=== PATIENT | female | born 1995 | race African-American/Black ===

== ENCOUNTER 2016-04-13 16:46 | Emergency (ER) | payer BC, OTHER ==
[2016-04-13 17:25] VITALS: BP 119/61; PULSE 51; RESP 18; TEMP 97.1
--- NOTE | 2016-04-13 17:42 | ED ---
General Adult HPI - General Chief complaint: ENT Stated complaint: Left Ear Hearing Impairment Time Seen by Provider: 04/13/16 17:33 Source: patient, RN notes reviewed Mode of arrival: ambulatory Limitations: no limitations - History of Present Illness Initial comments: Patient is a 21-year-old female who presents emergency room today with a chief complaint of possible ear infection to the left side. She does admit that a week ago began bothering her. She states that she did place some cotton in it the other day. She states she noticed she was having some drainage coming from it does admit that there was some blood on it. She states she did not place anything else in the ear. She states the hearing has been decreased and has been more painful. Denies any other complaints or symptoms. Patient denies any recent fever, chills, shortness of breath, chest pain, back pain, abdominal pain , nausea or vomiting, numbness or tingling, dysuria or hematuria, constipation or diarrhea, headaches or visual changes, or any other complaints. - Related Data Home Medications Medication Instructions Recorded Confirmed Pnv with Ca,No.72/Iron/FA 1 each PO DAILY 12/19/15 12/19/15 [ Plus Tablet] Previous Rx's Medication Instructions Recorded Amoxicillin 500 mg PO Q8H 10 Days 04/13/16 Ciprofloxacin HCl/Dexameth 4 drops LEFT EAR BID 7 Days 04/13/16 [Ciprodex Otic Suspension] Allergies Allergy/AdvReac Type Severity Reaction Status Date / Time No Known Allergies Allergy Verified 04/13/16 17:25 Review of Systems ROS Statement: Those systems with pertinent positive or pertinent negative responses have been documented in the HPI. ROS Other: All systems not noted in ROS Statement are negative. Past Medical History Past Medical History: No Reported History History of Any Multi-Drug Resistant Organisms: None Reported Past Surgical History: No Surgical Hx Reported Past Anesthesia/Blood Transfusion Reactions: No Reported Reaction, Unable to Obtain Past Psychological History: Anxiety, Bipolar, Depression Smoking Status: Never smoker Past Alcohol Use History: None Reported Past Drug Use History: None Reported - Past Family History Mother Additional Family Medical History / Comment(s): States having some form of thyroid disease General Exam - General Exam Comments Initial Comments: General: The patient is awake and alert, in no distress, and does not appear acutely ill. Eye: Pupils are equal, round and reactive to light, extra-ocular movements are intact. No nystagmus. There is normal conjunctiva bilaterally. No signs of icterus. Ears, nose, mouth and throat: There are moist mucous membranes and no oral lesions. Patient is tender over palpation of the pinna [place] on the left. No tenderness on the right. TMs clear on the right. Left TM difficult to visualize. There is some mild drainage with some dry blood in the left ear canal. Difficult to see the TM. Neck: The neck is supple, there is no tenderness or JVD. Cardiovascular: There is a regular rate and rhythm. No murmur, rub or gallop is appreciated. Respiratory: Lungs are clear to auscultation, respirations are non-labored, breath sounds are equal. No wheezes, stridor, rales, or rhonchi. Musculoskeletal: Normal ROM, no tenderness. Strength 5/5. Sensation intact. Pulses equal bilaterally 2+. Neurological: A&O x 3. CN II-XII intact, There are no obvious motor or sensory deficits. Coordination appears grossly intact. Speech is normal. Skin: Skin is warm and dry and no rashes or lesions are noted. Psychiatric: Cooperative, appropriate mood & affect, normal judgment. Limitations: no limitations Course Vital Signs 04/13/16 17:23 Temperature 97.1 F L Pulse Rate 51 L Respiratory 18 Rate Blood Pressure 119/61 O2 Sat by Pulse 98 Oximetry Medical Decision Making - Medical Decision Making Was discussed with patient about possible ruptured tympanic membrane. Patient is advised follow-up with ENT will be started on both oral and drops of antibiotics. Disposition Clinical Impression: Acute otitis media, Acute otitis externa Disposition: HOME SELF-CARE Condition: Good Instructions: Earache (ED) Additional Instructions: Please use medication as discussed. Please follow-up with family doctor/ENT specialist in the next 2 days of symptoms have not improved. Please return to emergency room if the symptoms increase or worsen or for any other concerns. Prescriptions: Amoxicillin 500 mg PO Q8H 10 Days Ciprofloxacin HCl/Dexameth [Ciprodex Otic Suspension] 4 drops LEFT EAR BID 7 Days Referrals: None,Stated [Primary Care Provider] - 1-2 days Choco Handley DO [Doctor of Osteopathic Medicine] - 1-2 days Time of Disposition: 17:42
== END 2016-04-13 18:10 | disposition home or self-care (01) ==
LOC: EC 16:46
DX: H66.92 Otitis media, unspecified, left ear (principal); H60.502 Unspecified acute noninfective otitis externa, left ear
CPT/HCPCS: 99283

== ENCOUNTER 2016-06-09 19:13 | Emergency (ER) | payer BC, OTHER ==
--- NOTE | 2016-06-09 19:35 | ED ---
Chest Pain HPI - General Chief Complaint: Chest Pain Stated Complaint: Chest Pain/Knee Injury Time Seen by Provider: 06/09/16 19:26 Source: patient, RN notes reviewed Mode of arrival: wheelchair Limitations: no limitations - History of Present Illness Initial Comments: Patient is a 21-year-old female presenting to the emergency department with multiple chief complaints. Patient reports that over the past day she's had an increased cough and when she coughs she does have a chest pain. She states it' s a burning sensation that radiates from her throat down her chest. 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 She reports she's been able to ambulate. She states that she has had a history of problems with her right knee. She denies any swelling. Patient reports that she does have a brace of her knee that she is more in the past. Patient also reports that she does have some lower back pain and some dysuria. She denies any fever or chills. She denies any sore throat or upper respiratory congestion. - Related Data Previous Rx's Medication Instructions Recorded Albuterol Inhaler [Ventolin Hfa 1 - 2 puff INHALATION Q6HR PRN #1 06/09/16 Inhaler] inhaler Ibuprofen [Motrin] 600 mg PO Q8HR PRN #20 tab 06/09/16 Nitrofurantoin Monohyd/M-Cryst 100 mg PO Q12HR #10 cap 06/09/16 [Macrobid] methylPREDNISolone Dose Pack 4 mg PO DIRECTED #21 package 06/09/16 [Medrol Dose Pack] Allergies Allergy/AdvReac Type Severity Reaction Status Date / Time No Known Allergies Allergy Verified 06/09/16 19:19 Review of Systems ROS Statement: Those systems with pertinent positive or pertinent negative responses have been documented in the HPI. ROS Other: All systems not noted in ROS Statement are negative. EKG Findings - EKG Comments: EKG Findings:: EKG shows normal sinus rhythm. Injury of 80 bpm. GA interval 134 ms. QRS duration 84 ms. QT/QTc is 378/457 ms. No evidence of ST elevation. No evidence of atrial or ventricular arrhythmias. Past Medical History Past Medical History: No Reported History History of Any Multi-Drug Resistant Organisms: None Reported Past Surgical History: No Surgical Hx Reported Past Anesthesia/Blood Transfusion Reactions: No Reported Reaction, Unable to Obtain Past Psychological History: Anxiety, Bipolar, Depression Smoking Status: Never smoker Past Alcohol Use History: None Reported Past Drug Use History: None Reported - Past Family History Mother Additional Family Medical History / Comment(s): States having some form of thyroid disease General Exam - General Exam Comments Initial Comments: Well-appearing 21-year-old female. No acute distress. Limitations: no limitations General appearance: alert, in no apparent distress Head exam: Present: atraumatic, normocephalic, normal inspection Eye exam: Present: normal appearance, PERRL, EOMI. Absent: scleral icterus, conjunctival injection, periorbital swelling ENT exam: Present: normal exam, mucous membranes moist Neck exam: Present: normal inspection. Absent: tenderness, meningismus, lymphadenopathy Respiratory exam: Present: normal lung sounds bilaterally, other (Dry cough). Absent: respiratory distress, wheezes, rales, rhonchi, stridor Cardiovascular Exam: Present: regular rate, normal rhythm, normal heart sounds. Absent: systolic murmur, diastolic murmur, rubs, gallop, clicks GI/Abdominal exam: Present: soft, normal bowel sounds. Absent: distended, tenderness, guarding, rebound, rigid Extremities exam: Present: normal inspection, full ROM, normal capillary refill , other (Patient has full range of motion and no swelling over bilateral knees. No evidence of laxity. Patient is bearing weight and has no limping.). Absent: tenderness, pedal edema, joint swelling, calf tenderness Back exam: Present: normal inspection Neurological exam: Present: alert, oriented X3, CN II-XII intact Psychiatric exam: Present: normal affect, normal mood Skin exam: Present: warm, dry, intact, normal color. Absent: rash Course Vital Signs 06/09/16 19:16 Temperature 98.2 F Pulse Rate 79 Respiratory 18 Rate Blood Pressure 138/69 O2 Sat by Pulse 97 Oximetry Chest Pain [facility] Patient is a 21-year-old female presenting to the emergency department with multiple chief complaints. Patient reports that over the past day she's had an increased cough and when she coughs she does have a chest pain. She states it' s a burning sensation that radiates from her throat down her chest. 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 She reports she's been able to ambulate. She states that she has had a history of problems with her right knee. She denies any swelling. Patient reports that she does have a brace of her knee that she is more in the past. Patient also reports that she does have some lower back pain and some dysuria. She denies any fever or chills. She denies any sore throat or upper respiratory congestion. Chest x-ray shows normal chest. Lungs are clear. Diaphragm is normal. Bony thorax and soft tissues appear normal. Urinalysis does show signs of infection with positive leukocyte esterase and high white blood cells. Patient will be placed on Macrobid. She does have a dry cough. Patient will be discharged with a albuterol inhaler and Medrol Dosepak. She has no wheezing at this time or signs of respiratory distress. Patient also will be given Tee wrap for both her knees. Patient states that she knows that her niece relates are broken and does not want x-rays. She states that she needed to be cleared to go back to work. Patient will be instructed to follow-up with a primary care provider. Also patient instructed to follow-up with orthopedic symptoms continue to sober knees. Patient is agrees with the treatment plan will comply. Disposition Clinical Impression: Bronchitis, Urinary tract infection, Knee pain Disposition: HOME SELF-CARE Condition: Good Instructions: Acute Bronchitis (ED), Urinary Tract Infection in Women (ED), Knee Sprain (ED) Additional Instructions: Follow-up with primary care provider. If pain continues to persist over the knee, follow-up with primary care provider Or orthopedic physician. Completely antibiotic prescription and the mother following prescriptions. Return to the emergency department if any alarming signs or symptoms occur. Prescriptions: Albuterol Inhaler [Ventolin Hfa Inhaler] 1 - 2 puff INHALATION Q6HR PRN #1 inhaler PRN Reason: Cough Ibuprofen [Motrin] 600 mg PO Q8HR PRN #20 tab PRN Reason: Pain Nitrofurantoin Monohyd/M-Cryst [Macrobid] 100 mg PO Q12HR #10 cap methylPREDNISolone Dose Pack [Medrol Dose Pack] 4 mg PO DIRECTED #21 package Referrals: Rosa Gonzalez MD [STAFF PHYSICIAN] - 1-2 days Madhav Mccurdy PAC [PHYSICIAN BEAD WIRE INSULATOR] - 1-2 days Time of Disposition: 20:57
[2016-06-09] MEDS ORDERED: MAG HYDROX/AL HYDROX/SIMETH 30 ML, HYOSCYAMINE ELIXIR 10 ML, CIMETIDINE HCL 300 MG, LID... PO STA ×4 (19:56)
--- NOTE | 2016-06-09 20:19 | XR ---
EXAMINATION TYPE: XR chest 2V DATE OF EXAM: 06/09/2016 8:08 PM COMPARISON: NONE HISTORY: Chest pain TECHNIQUE: Frontal and lateral views of the chest are obtained. FINDINGS: Heart and mediastinum are normal. Lungs are clear. Diaphragm is normal. Bony thorax and so ft tissues appear normal. IMPRESSION: Normal chest
[2016-06-09 20:39] LABS: Amorphous Sediment,Urine Occasional /hpf; Appearance,Urine Clear (Clear); Bilirubin,Urine Negative (Negative); Glucose,Urine (UA) Negative (Negative); Ketones,Urine Trace (Negative); Leukocyte Esterase,Urine Moderate (Negative); Mucus,Urine Rare /hpf; Nitrite,Urine Negative (Negative); PH, Urine 5.5 (5.0-8.0); Particle Count 4200; Protein,Urine Negative (Negative); RBC,Urine 1 /hpf (0-5); Specific Gravity,Urine 1.024 (1.001-1.035); Squamous Epithelial Cell,Urine 6 /hpf (0-4); UA Billing (MACRO vs. MICRO) MICRO; Urobilinogen,Urine <2.0 mg/dL (<2.0); WBC,Urine 23 /hpf (0-5)
[2016-06-09 21:12] VITALS: BP 117/56; PULSE 58; RESP 20; TEMP 98.6
== END 2016-06-09 21:10 | disposition home or self-care (01) ==
LOC: EC 19:13
DX: M25.562 Pain in left knee (principal); M25.561 Pain in right knee; N39.0 Urinary tract infection, site not specified; J40 Bronchitis, not specified as acute or chronic; R07.9 Chest pain, unspecified; W51.XXXA Accidental striking against or bumped into by another person, initial encounter; Y99.0 Civilian activity done for income or pay
CPT/HCPCS: 71020; 81001; 87086; 93005; 99285

== ENCOUNTER → 2016-06-19 | Outpatient (CLI) | payer OTHER ==
--- NOTE | 2016-06-19 13:43 | XR ---
EXAMINATION TYPE: XR knee limited RT DATE OF EXAM: 06/19/2016 1:36 PM COMPARISON: NONE HISTORY: chronic right knee pain x 3 years TECHNIQUE: Two views are submitted. FINDINGS: Joint spaces are preserved. Osseous structures are intact. No acute fracture seen. IMPRESSION: 1. No acute fracture or dislocation. If symptoms persist consider MRI.
== END | disposition home or self-care (01) ==
LOC: RADXRMAIN 13:05
PROVIDERS: ATTEND Nurse Practitioner Women's Health
DX: M25.561 Pain in right knee (principal)

== ENCOUNTER 2017-05-06 20:35 | Emergency (ER) | payer OTHER ==
[2017-05-06 20:52] VITALS: BP 122/60; PULSE 67; RESP 16; TEMP 97.4
--- NOTE | 2017-05-06 21:16 | ED ---
General Adult HPI - General Chief complaint: Nausea/Vomiting/Diarrhea Stated complaint: Vomiting Time Seen by Provider: 05/06/17 21:02 Source: patient, RN notes reviewed Mode of arrival: ambulatory Limitations: no limitations - History of Present Illness Initial comments: This is a 22 year old female who presents with abdominal pain that has been coming and going for 3 months. The patient states the pain is located in the right upper quadrant and epigastric region. She denies any worsening of symptoms with food intake. She denies nausea, vomiting, diarrhea. She states she has taken several tests at home which were all negative. Her last menstrual period was April 26, 2017. She also reports that she is currently being worked up with her primary care provider for thyroid issues. - Related Data Home Medications Medication Instructions Recorded Confirmed Acetaminophen [Tylenol] 325 mg PO Q4H PRN 05/06/17 05/06/17 Previous Rx's Medication Instructions Recorded Ondansetron Odt [Zofran Odt] 4 mg PO Q8HR PRN #14 tab 05/06/17 Sulfamethox-Tmp 800-160Mg [Bactrim 1 each PO Q12HR #10 tab 05/06/17 Ds] Allergies Allergy/AdvReac Type Severity Reaction Status Date / Time No Known Allergies Allergy Verified 05/06/17 21:08 Review of Systems ROS Statement: Those systems with pertinent positive or pertinent negative responses have been documented in the HPI. ROS Other: All systems not noted in ROS Statement are negative. Past Medical History Past Medical History: No Reported History History of Any Multi-Drug Resistant Organisms: None Reported Past Surgical History: No Surgical Hx Reported Past Anesthesia/Blood Transfusion Reactions: No Reported Reaction, Unable to Obtain Past Psychological History: Anxiety, Bipolar, Depression Smoking Status: Never smoker Past Alcohol Use History: None Reported Past Drug Use History: None Reported - Past Family History Mother Additional Family Medical History / Comment(s): States having some form of thyroid disease General Exam Limitations: no limitations General appearance: alert, in no apparent distress Head exam: Present: atraumatic, normocephalic, normal inspection Eye exam: Present: normal appearance ENT exam: Present: normal exam, mucous membranes moist Neck exam: Present: normal inspection. Absent: tenderness, meningismus, lymphadenopathy Respiratory exam: Present: normal lung sounds bilaterally. Absent: respiratory distress, wheezes, rales, rhonchi, stridor Cardiovascular Exam: Present: regular rate, normal rhythm, normal heart sounds. Absent: systolic murmur, diastolic murmur, rubs, gallop, clicks GI/Abdominal exam: Present: soft, tenderness, normal bowel sounds, other ( Tender with palpation over the epigastric and RUQ regions). Absent: guarding, rebound, rigid, organomegaly, mass, bruit, pulsatile mass Back exam: Present: normal inspection Neurological exam: Present: alert, oriented X3, CN II-XII intact Psychiatric exam: Present: normal affect, normal mood Skin exam: Present: warm, dry, intact, normal color. Absent: rash Course Vital Signs 05/06/17 20:49 Temperature 97.4 F L Pulse Rate 67 Respiratory 16 Rate Blood Pressure 122/60 O2 Sat by Pulse 100 Oximetry Medical Decision Making - Medical Decision Making This 22 year old female came to the ED with a chief complaint of abdominal pain that has been coming and going over the last 3 months. Labwork was negative for any abnormality. Urinalysis revealed the presence of a urinary tract infection. The findings were discussed with the patient. She was given a 5 day course of Bactrim DS. Patient will follow-up with GI to discuss her nausea and ongoing abdominal discomfort. We discussed possible HIDA scan colonoscopy. - Lab Data Result diagrams: 05/06/17 21:32 05/06/17 21:32 Lab Results 05/06/17 05/06/17 05/06/17 Range/Units 21:32 21:32 21:46 WBC 4.9 (3.8-10.6) k/uL RBC 4.59 (3.80-5.40) m/uL Hgb 13.3 (11.4-16.0) gm/dL Hct 41.7 (34.0-46.0) % MCV 90.8 (80.0-100.0) fL MCH 29.0 (25.0-35.0) pg MCHC 31.9 (31.0-37.0) g/dL RDW 13.3 (11.5-15.5) % Plt Count 247 (150-450) k/uL Neutrophils % 51 % Lymphocytes % 40 % Monocytes % 4 % Eosinophils % 3 % Basophils % 1 % Neutrophils # 2.5 (1.3-7.7) k/uL Lymphocytes # 2.0 (1.0-4.8) k/uL Monocytes # 0.2 (0-1.0) k/uL Eosinophils # 0.2 (0-0.7) k/uL Basophils # 0.0 (0-0.2) k/uL Sodium 141 (137-145) mmol/L Potassium 3.9 (3.5-5.1) mmol/L Chloride 104 (98-107) mmol/L Carbon Dioxide 25 (22-30) mmol/L Anion Gap 12 mmol/L BUN 11 (7-17) mg/dL Creatinine 0.90 (0.52-1.04) mg/dL Est GFR (MDRD) Af Amer >60 (>60 ml/min/1.73 sqM) Est GFR (MDRD) Non-Af >60 (>60 ml/min/1.73 sqM) Glucose 85 (74-99) mg/dL Calcium 9.7 (8.4-10.2) mg/dL Total Bilirubin 0.5 (0.2-1.3) mg/dL AST 18 (14-36) U/L ALT 25 (9-52) U/L Alkaline Phosphatase 41 (38-126) U/L Total Protein 7.3 (6.3-8.2) g/dL Albumin 4.4 (3.5-5.0) g/dL Amylase 84 (30-110) U/L Lipase 114 (23-300) U/L Urine Color Urine Appearance (Clear) Urine pH (5.0-8.0) Ur Specific Jber (1.001-1.035) Urine Protein (Negative) Urine Glucose (UA) (Negative) Urine Ketones (Negative) Urine Blood (Negative) Urine Nitrite (Negative) Urine Bilirubin (Negative) Urine Urobilinogen (<2.0) mg/dL Ur Leukocyte Esterase (Negative) Urine RBC (0-5) /hpf Urine WBC (0-5) /hpf Ur Squamous Epith Cells (0-4) /hpf Urine Bacteria (None) /hpf Urine Mucus (None) /hpf Urine HCG, Qual Not Detected (Not Detectd) 05/06/17 Range/Units 21:46 WBC (3.8-10.6) k/uL RBC (3.80-5.40) m/uL Hgb (11.4-16.0) gm/dL Hct (34.0-46.0) % MCV (80.0-100.0) fL MCH (25.0-35.0) pg MCHC (31.0-37.0) g/dL RDW (11.5-15.5) % Plt Count (150-450) k/uL Neutrophils % % Lymphocytes % % Monocytes % % Eosinophils % % Basophils % % Neutrophils # (1.3-7.7) k/uL Lymphocytes # (1.0-4.8) k/uL Monocytes # (0-1.0) k/uL Eosinophils # (0-0.7) k/uL Basophils # (0-0.2) k/uL Sodium (137-145) mmol/L Potassium (3.5-5.1) mmol/L Chloride (98-107) mmol/L Carbon Dioxide (22-30) mmol/L Anion Gap mmol/L BUN (7-17) mg/dL Creatinine (0.52-1.04) mg/dL Est GFR (MDRD) Af Amer (>60 ml/min/1.73 sqM) Est GFR (MDRD) Non-Af (>60 ml/min/1.73 sqM) Glucose (74-99) mg/dL Calcium (8.4-10.2) mg/dL Total Bilirubin (0.2-1.3) mg/dL AST (14-36) U/L ALT (9-52) U/L Alkaline Phosphatase (38-126) U/L Total Protein (6.3-8.2) g/dL Albumin (3.5-5.0) g/dL Amylase (30-110) U/L Lipase (23-300) U/L Urine Color Yellow Urine Appearance Clear (Clear) Urine pH 6.0 (5.0-8.0) Ur Specific Jber 1.019 (1.001-1.035) Urine Protein Negative (Negative) Urine Glucose (UA) Negative (Negative) Urine Ketones Negative (Negative) Urine Blood Negative (Negative) Urine Nitrite Negative (Negative) Urine Bilirubin Negative (Negative) Urine Urobilinogen <2.0 (<2.0) mg/dL Ur Leukocyte Esterase Moderate H (Negative) Urine RBC 1 (0-5) /hpf Urine WBC 4 (0-5) /hpf Ur Squamous Epith Cells 1 (0-4) /hpf Urine Bacteria Occasional H (None) /hpf Urine Mucus Rare H (None) /hpf Urine HCG, Qual (Not Detectd) Disposition Clinical Impression: Urinary tract infection, Abdominal pain, Nausea Disposition: HOME SELF-CARE Condition: Stable Instructions: Urinary Tract Infection in Women (ED) Additional Instructions: Please return to the Emergency Department if experiencing new or worsening symptoms. Prescriptions: Ondansetron Odt [Zofran Odt] 4 mg PO Q8HR PRN #14 tab PRN Reason: Nausea Sulfamethox-Tmp 800-160Mg [Bactrim Ds] 1 each PO Q12HR #10 tab Referrals: Bhupendra Carrasco Jr, DO [Doctor of Osteopathic Medicine] - 1-2 days Yokasta Hanson MD [STAFF PHYSICIAN] - 1-2 days Time of Disposition: 22:09
[2017-05-06 21:41] LABS: Basophils % (A) 1 %; Eosinophils # (A) 0.2 k/uL (0-0.7); Eosinophils % (A) 3 %; HCT 41.7 % (34.0-46.0); HGB 13.3 gm/dL (11.4-16.0); Lymphocytes % (A) 40 %; MCHC 31.9 g/dL (31.0-37.0); MCV 90.8 fL (80.0-100.0); Mean Platelet Volume 7.3; Monocytes # (A) 0.2 k/uL (0-1.0); Monocytes % (A) 4 %; Neutrophils # (A) 2.5 k/uL (1.3-7.7); Neutrophils % (A) 51 %; Platelet Count 247 k/uL (150-450); RBC 4.59 m/uL (3.80-5.40); RDW 13.3 % (11.5-15.5); WBC 4.9 k/uL (3.8-10.6)
[2017-05-06 21:52] LABS: ALT 25 U/L (9-52); AST 18 U/L (14-36); Albumin 4.4 g/dL (3.5-5.0); Alkaline Phosphatase 41 U/L (38-126); Amylase 84 U/L (30-110); Anion Gap 12 mmol/L; Blood Urea Nitrogen 11 mg/dL (7-17); Calcium 9.7 mg/dL (8.4-10.2); Carbon Dioxide 25 mmol/L (22-30); Chloride 104 mmol/L (98-107); Glucose 85 mg/dL (74-99); Lipase 114 U/L (23-300); Potassium 3.9 mmol/L (3.5-5.1); Sodium 141 mmol/L (137-145); Total Bilirubin 0.5 mg/dL (0.2-1.3); Total Protein 7.3 g/dL (6.3-8.2)
[2017-05-06 22:01] LABS: Appearance,Urine Clear (Clear); Bacteria,Urine Occasional /hpf; Bilirubin,Urine Negative (Negative); Blood,Urine Negative (Negative); Color,Urine Yellow; Glucose,Urine (UA) Negative (Negative); Ketones,Urine Negative (Negative); Leukocyte Esterase,Urine Moderate (Negative); Mucus,Urine Rare /hpf; Nitrite,Urine Negative (Negative); Protein,Urine Negative (Negative); RBC,Urine 1 /hpf (0-5); Specific Gravity,Urine 1.019 (1.001-1.035); Squamous Epithelial Cell,Urine 1 /hpf (0-4); Urobilinogen,Urine <2.0 mg/dL (<2.0); WBC,Urine 4 /hpf (0-5)
== END 2017-05-06 22:33 | disposition home or self-care (01) ==
LOC: EC 20:35
DX: N39.0 Urinary tract infection, site not specified (principal); R10.11 Right upper quadrant pain; R10.13 Epigastric pain; R11.0 Nausea
CPT/HCPCS: 36415; 80053; 81001; 81025; 82150; 83690; 85025; 99283

== ENCOUNTER 2018-02-10 16:02 | Emergency (ER) | payer OTHER ==
[2018-02-10 16:22] VITALS: RESP 18
[2018-02-10 16:49] LABS: Basophils % (A) 1 %; Eosinophils # (A) 0.1 k/uL (0-0.7); Eosinophils % (A) 2 %; HCT 46.2 % (34.0-46.0); HGB 14.6 gm/dL (11.4-16.0); Lymphocytes # (A) 1.7 k/uL (1.0-4.8); Lymphocytes % (A) 45 %; MCH 28.8 pg (25.0-35.0); MCHC 31.6 g/dL (31.0-37.0); MCV 91.1 fL (80.0-100.0); Mean Platelet Volume 7.9; Monocytes # (A) 0.1 k/uL (0-1.0); Monocytes % (A) 3 %; Neutrophils # (A) 1.7 k/uL (1.3-7.7); Neutrophils % (A) 47 %; Platelet Count 260 k/uL (150-450); RBC 5.07 m/uL (3.80-5.40); RDW 13.8 % (11.5-15.5); WBC 3.7 k/uL (3.8-10.6)
[2018-02-10 16:55] LABS: Appearance,Urine Clear (Clear); Bilirubin,Urine Negative (Negative); Blood,Urine Negative (Negative); Color,Urine Yellow; Glucose,Urine (UA) Negative (Negative); Ketones,Urine Negative (Negative); Leukocyte Esterase,Urine Small (Negative); Mucus,Urine Rare /hpf; Nitrite,Urine Negative (Negative); PH, Urine 5.5 (5.0-8.0); Protein,Urine Negative (Negative); RBC,Urine 1 /hpf (0-5); Specific Gravity,Urine 1.021 (1.001-1.035); Squamous Epithelial Cell,Urine 2 /hpf (0-4); Urobilinogen,Urine <2.0 mg/dL (<2.0); WBC,Urine 6 /hpf (0-5)
[2018-02-10 17:00] LABS: ALT 27 U/L (9-52); AST 19 U/L (14-36); Albumin 4.5 g/dL (3.5-5.0); Alkaline Phosphatase 39 U/L (38-126); Anion Gap 11 mmol/L; Blood Urea Nitrogen 11 mg/dL (7-17); Calcium 9.9 mg/dL (8.4-10.2); Carbon Dioxide 25 mmol/L (22-30); Chloride 106 mmol/L (98-107); Glucose 84 mg/dL (74-99); Sodium 142 mmol/L (137-145); Total Bilirubin 0.8 mg/dL (0.2-1.3); Total Protein 7.8 g/dL (6.3-8.2)
[2018-02-10] MEDS ORDERED: KETOROLAC 30 MG/ML 1 ML VIAL IM STA (18:37)
--- NOTE | 2018-02-10 18:48 | ED ---
Abdominal Pain HPI - General Chief Complaint: Abdominal Pain Stated Complaint: Abd.pain Time Seen by Provider: 02/10/18 18:06 Source: patient Mode of arrival: ambulatory Limitations: no limitations - History of Present Illness Initial Comments: 22-year-old female patient presents to the emergency department today with complaints of left-sided abdominal pain and pelvic pain. Patient states that she has been having pelvic pain since the delivery of her last child one year ago. Patient states it is more in the left lower pelvic region. Patient states she has been having left-sided abdominal pain for the last 3 months. Patient states that both have been worsening over the last couple of weeks. States that she was evaluated at [facility] discharged home with medication for peptic ulcer disease. States that she did see her primary care physician who wanted to schedule her for a pelvic ultrasound however instructed her to come here for pain worsened. Patient denies any abnormal vaginal discharge or bleeding. States that her periods have been a little heavier than usual but otherwise normal. States that she does have some low back pain with this. States that she has been having bowel movements daily, states that they range from soft to hard. Denies any nausea, vomiting, chest pain, shortness of breath, fever, chills, dizziness, or weakness. Denies any hematuria, dysuria, urinary urgency, urinary frequency. States that she has taken several negative tests. - Related Data Home Medications Medication Instructions Recorded Confirmed Acetaminophen [Tylenol] 1,000 mg PO Q8HR 02/10/18 02/10/18 Calcium Carbonate [Tums] 500 mg PO QID 02/10/18 02/10/18 Citalopram Hydrobromide [CeleXA] 20 mg PO DAILY 02/10/18 02/10/18 Cranberry Fruit Concentrate [Azo 250 mg PO DAILY 02/10/18 02/10/18 Cranberry] Famotidine [Pepcid] 20 mg PO BID 02/10/18 02/10/18 Previous Rx's Medication Instructions Recorded Ibuprofen [Motrin] 600 mg PO Q8HR PRN #30 tab 02/10/18 Allergies Allergy/AdvReac Type Severity Reaction Status Date / Time No Known Allergies Allergy Verified 02/10/18 16:21 Review of Systems ROS Statement: Those systems with pertinent positive or pertinent negative responses have been documented in the HPI. ROS Other: All systems not noted in ROS Statement are negative. Past Medical History Past Medical History: No Reported History History of Any Multi-Drug Resistant Organisms: None Reported Past Surgical History: No Surgical Hx Reported Past Anesthesia/Blood Transfusion Reactions: No Reported Reaction, Unable to Obtain Past Psychological History: Anxiety, Bipolar, Depression Smoking Status: Never smoker Past Alcohol Use History: None Reported Past Drug Use History: None Reported - Past Family History Mother Additional Family Medical History / Comment(s): States having some form of thyroid disease General Exam Limitations: no limitations General appearance: alert, in no apparent distress, other (This is a well- developed, well-nourished adult female patient in no acute distress. Vital signs upon presentation are temperature 98.2F, pulse 59, respirations 18, blood pressure 115/63, pulse ox 100% on room air.) Eye exam: Present: normal appearance, PERRL, EOMI. Absent: scleral icterus, conjunctival injection, periorbital swelling ENT exam: Present: normal exam, normal oropharynx, mucous membranes moist Respiratory exam: Present: normal lung sounds bilaterally. Absent: respiratory distress, wheezes, rales, rhonchi, stridor Cardiovascular Exam: Present: regular rate, normal rhythm, normal heart sounds. Absent: systolic murmur, diastolic murmur, rubs, gallop, clicks GI/Abdominal exam: Present: soft, tenderness (Midepigastric tenderness, left lower quadrant tenderness), normal bowel sounds. Absent: distended, guarding, rebound, rigid External exam: Present: normal external exam Speculum exam: Present: erythema (There is cervical erythema and friability), vaginal discharge (Thick greenish clear vaginal discharge). Absent: vaginal bleeding By manual exam: Present: cervical motion tenderness, adnexal tenderness (Right adnexal tenderness). Absent: adnexal mass, uterine enlargement, uterine tenderness Back exam: Present: normal inspection. Absent: CVA tenderness (R), CVA tenderness (L) Neurological exam: Present: alert, oriented X3, CN II-XII intact Psychiatric exam: Present: normal affect, normal mood Skin exam: Present: warm, dry, intact, normal color. Absent: rash Course Vital Signs 02/10/18 16:17 Temperature 98.2 F Pulse Rate 59 L Respiratory 18 Rate Blood Pressure 115/63 O2 Sat by Pulse 100 Oximetry Medical Decision Making - Medical Decision Making 22-year-old female patient presented to the emergency department today for complaints of pelvic pain 1 year and left-sided abdominal pain 3 months. Physical examination did reveal some left lower quadrant tenderness. Pelvic exam did reveal an erythematous friable cervix with cervical motion tenderness and mucopurulent discharge. Labs reviewed and are relatively unremarkable. Urinalysis did show presence of small leukocyte esterase, 6 white blood cells, and small mucous. Ultrasound of the pelvis was obtained and did show a left- sided ovarian cysts but no other abnormalities. Did discuss findings and results with the patient. We did discuss possibility of sexually transmitted infection, we will treat today with azithromycin and Rocephin injection. Cultures have been sent, she will be notified if any of her testing is positive. If the culture comes back positive for bacterial vaginosis we will send prescription for this. She is instructed to follow-up with her spectrographer for further evaluation. Return parameters discussed in detail. She verbalizes understanding and agrees with this plan. - Lab Data Result diagrams: 02/10/18 16:30 02/10/18 16:30 Lab Results 02/10/18 02/10/18 02/10/18 Range/Units 16:30 16:30 16:30 WBC 3.7 L (3.8-10.6) k/uL RBC 5.07 (3.80-5.40) m/uL Hgb 14.6 (11.4-16.0) gm/dL Hct 46.2 H (34.0-46.0) % MCV 91.1 (80.0-100.0) fL MCH 28.8 (25.0-35.0) pg MCHC 31.6 (31.0-37.0) g/dL RDW 13.8 (11.5-15.5) % Plt Count 260 (150-450) k/uL Neutrophils % 47 % Lymphocytes % 45 % Monocytes % 3 % Eosinophils % 2 % Basophils % 1 % Neutrophils # 1.7 (1.3-7.7) k/uL Lymphocytes # 1.7 (1.0-4.8) k/uL Monocytes # 0.1 (0-1.0) k/uL Eosinophils # 0.1 (0-0.7) k/uL Basophils # 0.0 (0-0.2) k/uL Sodium 142 (137-145) mmol/L Potassium 4.0 (3.5-5.1) mmol/L Chloride 106 (98-107) mmol/L Carbon Dioxide 25 (22-30) mmol/L Anion Gap 11 mmol/L BUN 11 (7-17) mg/dL Creatinine 0.64 (0.52-1.04) mg/dL Est GFR (CKD-EPI)AfAm >90 (>60 ml/min/1.73 sqM) Est GFR (CKD-EPI)NonAf >90 (>60 ml/min/1.73 sqM) Glucose 84 (74-99) mg/dL Calcium 9.9 (8.4-10.2) mg/dL Total Bilirubin 0.8 (0.2-1.3) mg/dL AST 19 (14-36) U/L ALT 27 (9-52) U/L Alkaline Phosphatase 39 (38-126) U/L Total Protein 7.8 (6.3-8.2) g/dL Albumin 4.5 (3.5-5.0) g/dL Urine Color Yellow Urine Appearance Clear (Clear) Urine pH 5.5 (5.0-8.0) Ur Specific [place] 1.021 (1.001-1.035) Urine Protein Negative (Negative) Urine Glucose (UA) Negative (Negative) Urine Ketones Negative (Negative) Urine Blood Negative (Negative) Urine Nitrite Negative (Negative) Urine Bilirubin Negative (Negative) Urine Urobilinogen <2.0 (<2.0) mg/dL Ur Leukocyte Esterase Small H (Negative) Urine RBC 1 (0-5) /hpf Urine WBC 6 H (0-5) /hpf Ur Squamous Epith Cells 2 (0-4) /hpf Urine Mucus Rare H (None) /hpf Urine HCG, Qual (Not Detectd) Trichomonas Ag (Rapid) (Negative) 02/10/18 02/10/18 Range/Units 16:30 18:45 WBC (3.8-10.6) k/uL RBC (3.80-5.40) m/uL Hgb (11.4-16.0) gm/dL Hct (34.0-46.0) % MCV (80.0-100.0) fL MCH (25.0-35.0) pg MCHC (31.0-37.0) g/dL RDW (11.5-15.5) % Plt Count (150-450) k/uL Neutrophils % % Lymphocytes % % Monocytes % % Eosinophils % % Basophils % % Neutrophils # (1.3-7.7) k/uL Lymphocytes # (1.0-4.8) k/uL Monocytes # (0-1.0) k/uL Eosinophils # (0-0.7) k/uL Basophils # (0-0.2) k/uL Sodium (137-145) mmol/L Potassium (3.5-5.1) mmol/L Chloride (98-107) mmol/L Carbon Dioxide (22-30) mmol/L Anion Gap mmol/L BUN (7-17) mg/dL Creatinine (0.52-1.04) mg/dL Est GFR (CKD-EPI)AfAm (>60 ml/min/1.73 sqM) Est GFR (CKD-EPI)NonAf (>60 ml/min/1.73 sqM) Glucose (74-99) mg/dL Calcium (8.4-10.2) mg/dL Total Bilirubin (0.2-1.3) mg/dL AST (14-36) U/L ALT (9-52) U/L Alkaline Phosphatase (38-126) U/L Total Protein (6.3-8.2) g/dL Albumin (3.5-5.0) g/dL Urine Color Urine Appearance (Clear) Urine pH (5.0-8.0) Ur Specific [place] (1.001-1.035) Urine Protein (Negative) Urine Glucose (UA) (Negative) Urine Ketones (Negative) Urine Blood (Negative) Urine Nitrite (Negative) Urine Bilirubin (Negative) Urine Urobilinogen (<2.0) mg/dL Ur Leukocyte Esterase (Negative) Urine RBC (0-5) /hpf Urine WBC (0-5) /hpf Ur Squamous Epith Cells (0-4) /hpf Urine Mucus (None) /hpf Urine HCG, Qual Not Detected (Not Detectd) Trichomonas Ag (Rapid) Negative (Negative) - Radiology Data Radiology results: report reviewed Transvaginal ultrasound of the pelvis was obtained. Report was reviewed in its entirety. Impression by Dr. Astudillo shows left ovarian cyst. No evidence of ovarian torsion. Normal uterus and endometrium. Small amount of free fluid in the cul-de-sac. Disposition Clinical Impression: Pelvic pain, Left ovarian cyst Disposition: HOME SELF-CARE Condition: Good Instructions: Ovarian Cyst (ED), Pelvic Pain in Women (ED) Additional Instructions: Follow-up with your spectrographer for recheck as soon as possible. Avoid sexual intercourse until you are culture results are back. If he denies hearing anything in 3 days call the hospital to ask for your results, call the emergency department [phone] and ask for the follow-up nurse. Take medications as directed. Return immediately for any new, worsening, or concerning symptoms. Prescriptions: Ibuprofen [Motrin] 600 mg PO Q8HR PRN #30 tab PRN Reason: Pain Is patient prescribed a controlled substance at d/c from ED?: No Referrals: Basim Lucas DO [Primary Care Provider] - 1-2 days Time of Disposition: 20:30
--- NOTE | 2018-02-10 19:43 | US ---
EXAMINATION TYPE: US transvaginal DATE OF EXAM: 02/10/2018 COMPARISON: NONE CLINICAL HISTORY: Pain. Pelvic pain TECHNIQUE: Transvaginal (TV). Transabdominal sonographic images of the pelvis were acquired. Trans vaginal sonographic images were medically necessary to better assess the following anatomy: EXAM MEASUREMENTS: Uterus: 8.0 x 4.3 x 5.0 cm Endometrial Stripe: 1.5 cm Right Ovary: 2.2 x 1.9 x 1.8 cm Left Ovary: 2.9 x 2.6 x 2.7 cm 1. Uterus: Anteverted wnl 2. Endometrium: wnl 3. Right Ovary: Follicles seen. 4. Left Ovary: Cystic area seen 1.4 x 1.9 x 1.8cm with a septation. Spectral, color and waveform doppler imaging shows good arterial and venous flow within the ovaries ; there is no evidence for ovarian torsion. 5. Bilateral Adnexa: wnl 6. Posterior cul-de-sac: Small amount of fluid seen. IMPRESSION: Left ovarian cysts. No evidence of ovarian torsion. Normal uterus and endometrium. Small amount of free fluid in the cul-de-sac.
[2018-02-10] MEDS ORDERED: AZITHROMYCIN 500 MG TAB PO STA (20:02)
[2018-02-10] MEDS ORDERED: cefTRIAXone 1,000 MG VIAL (IM USE) IM STA (20:02)
[2018-02-10 20:57] VITALS: BP 114/67; PULSE 61; TEMP 97.6
[2018-02-11 13:07] LABS: C. trachomatis,PCR Negative (Neg,Equiv); Chlamydia trachomatis Source Cervix; N. gonorrhoeae,PCR Negative (Neg,Equiv); Neisseria Source Cervix
== END 2018-02-10 20:57 | disposition home or self-care (01) ==
LOC: EC 16:02
DX: N83.202 Unspecified ovarian cyst, left side (principal); F31.9 Bipolar disorder, unspecified; F41.9 Anxiety disorder, unspecified; Z79.899 Other long term (current) drug therapy
CPT/HCPCS: 36415; 80053; 85025; 81001; 81025; 87808; 87491; 87591; 87070; 87205; 93975; 76830; 99284; 96372 ×2; J0696; J1885

== ENCOUNTER 2018-04-22 15:06 | Emergency (ER) | payer BC, OTHER ==
[2018-04-22 15:39] VITALS: RESP 18
[2018-04-22] MEDS ORDERED: ACETAMINOPHEN TAB 325 MG TAB PO STA (17:58)
[2018-04-22 18:15] LABS: Appearance,Urine Cloudy (Clear); Bilirubin,Urine Negative (Negative); Blood,Urine Negative (Negative); Color,Urine Yellow; Glucose,Urine (UA) Negative (Negative); Ketones,Urine 2+ (Negative); Leukocyte Esterase,Urine Large (Negative); Mucus,Urine Occasional /hpf; Nitrite,Urine Negative (Negative); PH, Urine 5.5 (5.0-8.0); Protein,Urine Trace (Negative); RBC,Urine 9 /hpf (0-5); Specific Gravity,Urine 1.019 (1.001-1.035); Squamous Epithelial Cell,Urine 5 /hpf (0-4); Urobilinogen,Urine <2.0 mg/dL (<2.0)
--- NOTE | 2018-04-22 18:36 | ED ---
General Adult HPI - General Chief complaint: Back Pain/Injury Stated complaint: back injury-[facility] Time Seen by Provider: 04/22/18 17:13 Source: patient, RN notes reviewed, old records reviewed Mode of arrival: ambulatory Limitations: no limitations - History of Present Illness Initial comments: 23-year-old female patient with no pertinent past medical history presents to ED with lumbar back strain and abdominal strain. 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 Later on that night patient patient began to experience some abdominal soreness as well. Patient states that she believes pain is muscular skeletal, denies any baseline abdominal or lumbar back pain. Patient states that the pain occurs with movement and motion. Denies any pain at rest. Patient denies any nausea vomiting diarrhea, fevers chills, paresthesias, loss of bowel or bladder control, lower extremity weakness, IV drug use. Systemic: Pt denies fatigue, fever/chills, rash. Pt denies weakness, night sweats, weight loss. Neuro: Pt denies headache, visual disturbances, syncope or pre-syncope. HEENT: Pt denies ocular discharge or irritation, otalgia, rhinorrhea, pharyngitis or notable lymphadenopathy. Cardiopulmonary: Pt denies chest pain, SOB, heart palpitations, dyspnea on exertion. Abdominal/GI: Pt denies abdominal pain, n/v/d. : Pt denies dysuria, burning w/ urination, frequency/urgency. Denies new onset urinary or bowel incontinence. MSK: Pt denies loss of strength or function in extremities. Neuro: Pt denies new onset weakness, paresthesias. - Related Data Home Medications Medication Instructions Recorded Confirmed Acetaminophen [Tylenol] 1,000 mg PO Q8HR 02/10/18 02/10/18 Calcium Carbonate [Tums] 500 mg PO QID 02/10/18 02/10/18 Citalopram Hydrobromide [CeleXA] 20 mg PO DAILY 02/10/18 02/10/18 Cranberry Fruit Concentrate [Azo 250 mg PO DAILY 02/10/18 02/10/18 Cranberry] Famotidine [Pepcid] 20 mg PO BID 02/10/18 02/10/18 Previous Rx's Medication Instructions Recorded Ibuprofen [Motrin] 600 mg PO Q8HR PRN #30 tab 02/10/18 Cephalexin [Keflex] 500 mg PO Q12HR 7 Days #14 cap 04/22/18 Allergies Allergy/AdvReac Type Severity Reaction Status Date / Time No Known Allergies Allergy Verified 04/22/18 15:39 Review of Systems ROS Statement: Those systems with pertinent positive or pertinent negative responses have been documented in the HPI. ROS Other: All systems not noted in ROS Statement are negative. Past Medical History Past Medical History: No Reported History History of Any Multi-Drug Resistant Organisms: None Reported Past Surgical History: No Surgical Hx Reported Past Anesthesia/Blood Transfusion Reactions: No Reported Reaction, Unable to Obtain Past Psychological History: Anxiety, Bipolar, Depression Smoking Status: Never smoker Past Alcohol Use History: None Reported Past Drug Use History: None Reported - Past Family History Mother Additional Family Medical History / Comment(s): States having some form of thyroid disease General Exam - General Exam Comments Initial Comments: Constitutional: NAD, AOX3, Pt has pleasant affect. HEENT: NC/AT, trachea midline, neck supple, no lymphadenopathy. Posterior pharynx non erythematous, without exudates. External ears appear normal, without discharge. Mucous membranes moist. Eyes PERRLA, EOM intact. There is no scleral icterus. No pallor noted. Cardiopulmonary: RRR, no murmurs, rubs or gallops, no JVD noted. Lungs CTAB in anterior and posterior millan. No peripheral edema. Abdominal exam: Abdomen soft and non-distended. Abdomen non-tender to palpation in all 4 quadrants. Bowel sounds active in LLQ. No hepatosplenomegaly. No ecchymosis Neuro: CN II-XII grossly intact. No nuchal rigidity. MSK: Paralumbar mildly tender to palpation, no midline lumbar tenderness. Psoas and quadriceps bilaterally 5 strength. 2 out of 4 reflexes patellar and Achilles. Posterior tibialis and dorsalis pedis pulse +2 bilaterally. No posterior calf tenderness bilaterally, homans sign negative bilaterally. Sensation intact in upper and lower extremities. Full active ROM in upper and lower extremities, 5/5 stregnth. She is ambulatory without difficulty. Lumbar and abdominal MSK pain reproducible by twisting motion. Limitations: no limitations Course Vital Signs 04/22/18 04/22/18 15:36 18:49 Temperature 97.8 F 97.9 F Pulse Rate 68 66 Respiratory 18 18 Rate Blood Pressure 121/82 125/72 O2 Sat by Pulse 100 97 Oximetry Medical Decision Making - Medical Decision Making 23-year-old female patient with no pertinent past medical history presents to ED with lumbar back strain and abdominal strain. 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 Later on that night patient patient began to experience some abdominal soreness as well. Patient states that she presented the pain is muscle skeletal, denies any baseline abdominal or lumbar back pain. Patient states that the pain occurs with movement and motion. Pt denies all other complaints. Physical exam displayed: nontender abdomen. Paralumbar mildly tender to palpation, no midline lumbar tenderness. Psoas and quadriceps bilaterally 5 strength. 2 out of 4 reflexes patellar and Achilles. Posterior tibialis and dorsalis pedis pulse +2 bilaterally. No posterior calf tenderness bilaterally, homans sign negative bilaterally. Sensation intact in upper and lower extremities. Full active ROM in upper and lower extremities, 5/5 stregnth. She is ambulatory without difficulty. Abdomen nontender to palpation. Laboratory investigations revealed UA that revealed +2 ketones, leukocyte Estrace, 9 red blood cells, 28 white blood cells, 5 squamous epithelial cells. HCG was detected. Pt states she has barely eaten today. Patient states that LMP was approximately 11 days ago. Shared decision making with patient, pt will decline imaging. Pt to be prescribe antibiotic for asymptomatic bacteriuria. Patient to follow up with primary care provider tomorrow for lumbar back strain, abdominal strain and new . Pt to f/u with prior carbide die maker as needed for . Case discussed in depth with Dr. Bowman. - Lab Data Lab Results 04/22/18 04/22/18 Range/Units 17:46 17:46 Urine Color Yellow Urine Appearance Cloudy H (Clear) Urine pH 5.5 (5.0-8.0) Ur Specific [place] 1.019 (1.001-1.035) Urine Protein Trace H (Negative) Urine Glucose (UA) Negative (Negative) Urine Ketones 2+ H (Negative) Urine Blood Negative (Negative) Urine Nitrite Negative (Negative) Urine Bilirubin Negative (Negative) Urine Urobilinogen <2.0 (<2.0) mg/dL Ur Leukocyte Esterase Large H (Negative) Urine RBC 9 H (0-5) /hpf Urine WBC 28 H (0-5) /hpf Ur Squamous Epith Cells 5 H (0-4) /hpf Urine Mucus Occasional H (None) /hpf Urine HCG, Qual Detected (Not Detectd) Disposition Clinical Impression: Lumbar back sprain, Asymptomatic bacteriuria Disposition: HOME SELF-CARE Condition: Stable Instructions (If sedation given, give patient instructions): Low Back Strain ( ED) Additional Instructions: Patient to adhere to previously discussed treatment plan and will take medication(s) as directed. Patient to follow up with PCP in 1-2 days. Patient to return to ED if symptoms do not improve. Prescriptions: Cephalexin [Keflex] 500 mg PO Q12HR 7 Days #14 cap Is patient prescribed a controlled substance at d/c from ED?: No Referrals: Basim Lucas DO [Primary Care Provider] - 1-2 days Time of Disposition: 18:36
[2018-04-22 18:55] VITALS: BP 125/72; PULSE 66; TEMP 97.9
== END 2018-04-22 18:49 | disposition home or self-care (01) ==
LOC: EC 15:06
DX: S33.5XXA Sprain of ligaments of lumbar spine, initial encounter (principal); R82.71 Bacteriuria; R82.4 Acetonuria; R82.998 Other abnormal findings in urine; R31.9 Hematuria, unspecified; Z32.01 Encounter for pregnancy test, result positive; R10.9 Unspecified abdominal pain; F32.9 Major depressive disorder, single episode, unspecified; F41.9 Anxiety disorder, unspecified; Z79.891 Long term (current) use of opiate analgesic; Z79.899 Other long term (current) drug therapy; Z87.828 Personal history of other (healed) physical injury and trauma; X50.1XXA Overexertion from prolonged static or awkward postures, initial encounter; Y93.89 Activity, other specified; Y92.69 Other specified industrial and construction area as the place of occurrence of the external cause; Y99.0 Civilian activity done for income or pay
CPT/HCPCS: 81001; 81025; 87086; 99284

== ENCOUNTER 2018-05-05 14:20 | Emergency (ER) | payer BC, OTHER ==
[2018-05-05 14:44] VITALS: TEMP 98.1
[2018-05-05] MEDS ORDERED: SODIUM CHLORIDE 0.9% 500 ML 500 ML IV STA (15:46)
--- NOTE | 2018-05-05 16:37 | ED ---
General Adult HPI - General Chief complaint: Abdominal Pain Stated complaint: Abd pain Time Seen by Provider: 05/05/18 15:22 Source: patient, RN notes reviewed, old records reviewed Mode of arrival: ambulatory Limitations: no limitations - History of Present Illness Initial comments: 23-year-old female patient LMP march 29 presents in ED with approximately 1.5 weeks of abdominal pain. Patient reports that this pain is worse in the right upper quadrant region, as well as the left lower quadrant region. Patient reports that she has had some nausea without emesis. Patient denies other complaints. Patient denies any dysuria, vomiting or diarrhea. Patient describes this as an achy pain. Patient was previously seen by her primary care provider proximal 1.5 weeks for this problem, who recommended presenting to the ED if symptoms worsen. Pt denies any vaginal bleeding or discharge. Systemic: Pt denies fatigue, myalgia, fever/chills, rash. Pt denies weakness, night sweats, weight loss. Neuro: Pt denies headache, visual disturbances, syncope or pre-syncope. HEENT: Pt denies ocular discharge or irritation, otalgia, rhinorrhea, pharyngitis or notable lymphadenopathy. Cardiopulmonary: Pt denies chest pain, SOB, heart palpitations, dyspnea on exertion. : Pt denies dysuria, burning w/ urination, frequency/urgency. Denies new onset urinary or bowel incontinence. MSK: Pt denies myalgia, loss of strength or function in extremities. Neuro: Pt denies new onset weakness, paresthesias. - Related Data Previous Rx's Medication Instructions Recorded Cephalexin [Keflex] 500 mg PO Q12HR 7 Days cap 05/05/18 Allergies Allergy/AdvReac Type Severity Reaction Status Date / Time No Known Allergies Allergy Verified 05/05/18 16:23 Review of Systems ROS Statement: Those systems with pertinent positive or pertinent negative responses have been documented in the HPI. ROS Other: All systems not noted in ROS Statement are negative. Past Medical History Past Medical History: No Reported History History of Any Multi-Drug Resistant Organisms: None Reported Past Surgical History: No Surgical Hx Reported Past Anesthesia/Blood Transfusion Reactions: No Reported Reaction, Unable to Obtain Past Psychological History: Anxiety, Bipolar, Depression Smoking Status: Never smoker Past Alcohol Use History: None Reported Past Drug Use History: None Reported - Past Family History Mother Additional Family Medical History / Comment(s): States having some form of thyroid disease General Exam - General Exam Comments Initial Comments: Constitutional: NAD, AOX3, Pt has pleasant affect. HEENT: NC/AT, trachea midline, neck supple, no lymphadenopathy. Posterior pharynx non erythematous, without exudates. External ears appear normal, without discharge. Mucous membranes moist. Eyes PERRLA, EOM intact. There is no scleral icterus. No pallor noted. Cardiopulmonary: RRR, no murmurs, rubs or gallops, no JVD noted. Lungs CTAB in anterior and posterior millan. No peripheral edema. Abdominal exam: Abdomen soft and non-distended. Abdomen mildly tender to palpation in right upper quadrant region and left lower quadrant region. Yeung sign negative. No adnexal tenderness or tenderness at m[place]neys point. Bowel sounds active in LLQ. No hepatosplenomegaly. No ecchymosis Neuro: CN II-XII grossly intact. No nuchal rigidity. MSK: No posterior calf tenderness bilaterally, homans sign negative bilaterally. Posterior tibialis and radial pulse +2 bilaterally. Sensation intact in upper and lower extremities. Full active ROM in upper and lower extremities, 5/5 stregnth. Limitations: no limitations Course Vital Signs 05/05/18 05/05/18 14:42 19:26 Temperature 98.1 F 98.1 F Pulse Rate 72 70 Respiratory 18 16 Rate Blood Pressure 127/81 120/87 O2 Sat by Pulse 100 100 Oximetry Medical Decision Making - Medical Decision Making 23-year-old female patient LMP march 29 presents in ED with approximately 1.5 weeks of abdominal pain. Patient reports that this pain is worse in the right upper quadrant region, as well as the left lower quadrant region. Patient reports that she has had some nausea without emesis. Patient denies other complaints. Patient denies any dysuria, vomiting or diarrhea. Patient describes this as an achy pain. Patient was previously seen by her primary care provider proximal 1.5 weeks for this problem, who recommended presenting to the ED if symptoms worsen. Pt denies any vaginal bleeding or discharge. Pt VSS, afebrile. Physical exam displayed: Abdomen soft and non- distended. Abdomen mildly tender to palpation in right upper quadrant region and left lower quadrant region. Yeung sign negative. No adnexal tenderness or tenderness at mcburneys point. Laboratory investigations revealed nonpresent CBC, CMP. UA displayed 12 white blood cells, 6 epithelial cells, occasional sperm. Transvaginal ultrasound displayed a single living intrauterine fetus. Gestational age is 5 weeks 4 days. No complicating process seen. Ultrasound of right upper quadrant revealed normal right upper quadrant, no gallstones or dilated ducts. These findings were explained patient length. Patient was understanding. Patient to follow up with OB tomorrow for continued evaluation. Patient administered Keflex for asymptomatic bacteriuria. Patient to return to ED if new symptoms develop or if condition worsens in any way. Case discussed in depth with Dr. Gimenez. - Lab Data Result diagrams: 05/05/18 16:05 05/05/18 16:05 Lab Results 05/05/18 05/05/18 05/05/18 Range/Units 16:05 16:05 16:05 WBC 3.9 (3.8-10.6) k/uL RBC 4.69 (3.80-5.40) m/uL Hgb 13.6 (11.4-16.0) gm/dL Hct 41.7 (34.0-46.0) % MCV 88.8 (80.0-100.0) fL MCH 29.1 (25.0-35.0) pg MCHC 32.8 (31.0-37.0) g/dL RDW 13.2 (11.5-15.5) % Plt Count 230 (150-450) k/uL Neutrophils % 50 % Lymphocytes % 39 % Monocytes % 5 % Eosinophils % 4 % Basophils % 1 % Neutrophils # 2.0 (1.3-7.7) k/uL Lymphocytes # 1.5 (1.0-4.8) k/uL Monocytes # 0.2 (0-1.0) k/uL Eosinophils # 0.2 (0-0.7) k/uL Basophils # 0.0 (0-0.2) k/uL Sodium 137 (137-145) mmol/L Potassium 4.4 (3.5-5.1) mmol/L Chloride 106 (98-107) mmol/L Carbon Dioxide 21 L (22-30) mmol/L Anion Gap 10 mmol/L BUN 7 (7-17) mg/dL Creatinine 0.57 (0.52-1.04) mg/dL Est GFR (CKD-EPI)AfAm >90 (>60 ml/min/1.73 sqM) Est GFR (CKD-EPI)NonAf >90 (>60 ml/min/1.73 sqM) Glucose 81 (74-99) mg/dL Calcium 9.3 (8.4-10.2) mg/dL Total Bilirubin 0.9 (0.2-1.3) mg/dL AST 23 (14-36) U/L ALT 28 (9-52) U/L Alkaline Phosphatase 34 L (38-126) U/L Total Protein 7.1 (6.3-8.2) g/dL Albumin 4.2 (3.5-5.0) g/dL Amylase 68 (30-110) U/L Lipase 98 (23-300) U/L HCG, Quant 51757.2 mIU/mL Urine Color Urine Appearance (Clear) Urine pH (5.0-8.0) Ur Specific Pierre (1.001-1.035) Urine Protein (Negative) Urine Glucose (UA) (Negative) Urine Ketones (Negative) Urine Blood (Negative) Urine Nitrite (Negative) Urine Bilirubin (Negative) Urine Urobilinogen (<2.0) mg/dL Ur Leukocyte Esterase (Negative) Urine RBC (0-5) /hpf Urine WBC (0-5) /hpf Ur Squamous Epith Cells (0-4) /hpf Urine Bacteria (None) /hpf Urine Mucus (None) /hpf Urine Sperm (None) /hpf Urine HCG, Qual Detected (Not Detectd) 05/05/18 Range/Units 16:05 WBC (3.8-10.6) k/uL RBC (3.80-5.40) m/uL Hgb (11.4-16.0) gm/dL Hct (34.0-46.0) % MCV (80.0-100.0) fL MCH (25.0-35.0) pg MCHC (31.0-37.0) g/dL RDW (11.5-15.5) % Plt Count (150-450) k/uL Neutrophils % % Lymphocytes % % Monocytes % % Eosinophils % % Basophils % % Neutrophils # (1.3-7.7) k/uL Lymphocytes # (1.0-4.8) k/uL Monocytes # (0-1.0) k/uL Eosinophils # (0-0.7) k/uL Basophils # (0-0.2) k/uL Sodium (137-145) mmol/L Potassium (3.5-5.1) mmol/L Chloride (98-107) mmol/L Carbon Dioxide (22-30) mmol/L Anion Gap mmol/L BUN (7-17) mg/dL Creatinine (0.52-1.04) mg/dL Est GFR (CKD-EPI)AfAm (>60 ml/min/1.73 sqM) Est GFR (CKD-EPI)NonAf (>60 ml/min/1.73 sqM) Glucose (74-99) mg/dL Calcium (8.4-10.2) mg/dL Total Bilirubin (0.2-1.3) mg/dL AST (14-36) U/L ALT (9-52) U/L Alkaline Phosphatase (38-126) U/L Total Protein (6.3-8.2) g/dL Albumin (3.5-5.0) g/dL Amylase (30-110) U/L Lipase (23-300) U/L HCG, Quant mIU/mL Urine Color Yellow Urine Appearance Cloudy H (Clear) Urine pH 6.5 (5.0-8.0) Ur Specific Pierre 1.013 (1.001-1.035) Urine Protein Negative (Negative) Urine Glucose (UA) Negative (Negative) Urine Ketones Negative (Negative) Urine Blood Negative (Negative) Urine Nitrite Negative (Negative) Urine Bilirubin Negative (Negative) Urine Urobilinogen <2.0 (<2.0) mg/dL Ur Leukocyte Esterase Moderate H (Negative) Urine RBC 2 (0-5) /hpf Urine WBC 12 H (0-5) /hpf Ur Squamous Epith Cells 6 H (0-4) /hpf Urine Bacteria Rare H (None) /hpf Urine Mucus Rare H (None) /hpf Urine Sperm Occasional H (None) /hpf Urine HCG, Qual (Not Detectd) Disposition Clinical Impression: Abdominal pain during intrauterine , Asymptomatic bacteriuria Disposition: HOME SELF-CARE Condition: Stable Instructions (If sedation given, give patient instructions): Abdominal Pain in (ED) Additional Instructions: Patient to adhere to previously discussed treatment plan and will take medication(s) as directed. Patient to follow up with PCP in 1-2 days. Patient to return to ED if symptoms do not improve. Please call [facility] tomorrow Please follow up with PCP in 1-2 days Please return to ED if new signs or symptoms develop or if condition worsens in anyway Prescriptions: Cephalexin [Keflex] 500 mg PO Q12HR 7 Days cap Is patient prescribed a controlled substance at d/c from ED?: No Referrals: Basim Lucas DO [Primary Care Provider] - 1-2 days Time of Disposition: 19:06
[2018-05-05 16:38] LABS: Basophils % (A) 1 %; Eosinophils # (A) 0.2 k/uL (0-0.7); Eosinophils % (A) 4 %; HCT 41.7 % (34.0-46.0); HGB 13.6 gm/dL (11.4-16.0); Lymphocytes # (A) 1.5 k/uL (1.0-4.8); Lymphocytes % (A) 39 %; MCH 29.1 pg (25.0-35.0); MCHC 32.8 g/dL (31.0-37.0); MCV 88.8 fL (80.0-100.0); Mean Platelet Volume 6.7; Monocytes # (A) 0.2 k/uL (0-1.0); Monocytes % (A) 5 %; Neutrophils % (A) 50 %; Platelet Count 230 k/uL (150-450); RBC 4.69 m/uL (3.80-5.40); RDW 13.2 % (11.5-15.5); WBC 3.9 k/uL (3.8-10.6)
[2018-05-05 16:43] LABS: Appearance,Urine Cloudy (Clear); Bacteria,Urine Rare /hpf; Bilirubin,Urine Negative (Negative); Blood,Urine Negative (Negative); Color,Urine Yellow; Glucose,Urine (UA) Negative (Negative); Ketones,Urine Negative (Negative); Leukocyte Esterase,Urine Moderate (Negative); Mucus,Urine Rare /hpf; Nitrite,Urine Negative (Negative); PH, Urine 6.5 (5.0-8.0); Protein,Urine Negative (Negative); RBC,Urine 2 /hpf (0-5); Specific Gravity,Urine 1.013 (1.001-1.035); Sperm,Urine Occasional /hpf; Squamous Epithelial Cell,Urine 6 /hpf (0-4); Urobilinogen,Urine <2.0 mg/dL (<2.0)
[2018-05-05 16:54] LABS: ALT 28 U/L (9-52); AST 23 U/L (14-36); Albumin 4.2 g/dL (3.5-5.0); Alkaline Phosphatase 34 U/L (38-126); Amylase 68 U/L (30-110); Anion Gap 10 mmol/L; Blood Urea Nitrogen 7 mg/dL (7-17); Calcium 9.3 mg/dL (8.4-10.2); Carbon Dioxide 21 mmol/L (22-30); Chloride 106 mmol/L (98-107); Glucose 81 mg/dL (74-99); Lipase 98 U/L (23-300); Potassium 4.4 mmol/L (3.5-5.1); Sodium 137 mmol/L (137-145); Total Bilirubin 0.9 mg/dL (0.2-1.3); Total Protein 7.1 g/dL (6.3-8.2)
[2018-05-05 17:36] LABS: HCG,Quantitative Serum 20707.2 mIU/mL
--- NOTE | 2018-05-05 18:12 | US ---
EXAMINATION TYPE: US abdomen limited DATE OF EXAM: 05/05/2018 COMPARISON: NONE CLINICAL HISTORY: abdominal pain. Pain EXAM MEASUREMENTS: Liver Length: 16.3 cm Gallbladder Wall: 0.3 cm CBD: 0.4 cm Right Kidney: 11.2 x 4.2 x 3.4 cm Pancreas: Tail obscured by overlying bowel gas Liver: wnl Gallbladder: wnl Evidence for sonographic Yeung's sign: No CBD: wnl Right Kidney: wnl IMPRESSION: Normal right upper quadrant abdominal sonogram. No gallstones or dilated ducts. No free f luid.
--- NOTE | 2018-05-05 18:13 | US ---
EXAMINATION TYPE: Transabdominal DATE OF EXAM: 06/18/17 COMPARISON: NONE CLINICAL HISTORY: Pain. Pain. EXAM PERFORMED: Transvaginal (TV) and Transabdominal (TA) EXAM MEASUREMENTS: GESTATIONAL AGE / DATING Physician Established: Not yet established Dates by LMP: (4 weeks/4 days) EDC: 01/08/2019 Dates by First Scan: No previous this is first scan Dates by Current Scan for: (5 weeks/4 days) EDC: 01/01/2019 MATERNAL ANATOMY Uterus: 10.8 x 4.7 x 6.1 cm Right Ovary: 3.8 x 1.9 x 2.5 cm Left Ovary: 2.3 x 1.9 x 1.9 cm Post CDS / Adnexa: wnl Presence of free fluid: no Presence of corpus luteal cyst: no Presence of subchorionic bleed: no GESTATION / SURVEY CRL: 0.31cm (5 weeks/6 days) MSD: 1.19cm (5 weeks/2 days) Yolk Sac (normal less than 6mm): 3mm Heart Rate: 135 bpm Rhythm: Normal IUP: Viable IUP Beta HcG (if available): Not available at this time IMPRESSION: Single living intrauterine fetus. Gestational age is 5 weeks 4 days. The ANNE is 01/01/2019. No compli cating process seen.
[2018-05-05] MEDS ORDERED: ACETAMINOPHEN TAB 325 MG TAB PO STA (18:40)
[2018-05-05 19:27] VITALS: BP 120/87; PULSE 70; RESP 16
== END 2018-05-05 19:26 | disposition home or self-care (01) ==
LOC: EC 14:20
DX: O99.89 Other specified diseases and conditions complicating pregnancy, childbirth and the puerperium (principal); R10.11 Right upper quadrant pain; R10.32 Left lower quadrant pain; R82.71 Bacteriuria; R11.0 Nausea; Z3A.01 Less than 8 weeks gestation of pregnancy
CPT/HCPCS: 36415; 76705; 76801; 76817; 80053; 81001; 81025; 82150; 83690; 84702; 85025; 87086; 99284

== ENCOUNTER 2018-09-23 12:01 | Emergency (ER) | payer BC, OTHER ==
[2018-09-23 12:14] VITALS: RESP 18
[2018-09-23] MEDS ORDERED: SODIUM CHLORIDE 0.9% 1,000 ML IV ONE ×2 (12:24)
--- NOTE | 2018-09-23 12:27 | ED ---
Female Urogenital HPI - General Chief complaint: Urogenital Stated complaint: /bleeding Time Seen by Provider: 09/23/18 12:15 Source: patient, RN notes reviewed, old records reviewed Mode of arrival: ambulatory Limitations: no limitations - History of Present Illness Initial comments: Patient is a 23-year-old female, , unknown last menstrual period. She presents today for vaginal bleeding for the past 4 days as well as 2 positive test. She reports she had a positive test on September 18, and went to [facility] today and had a subsequent positive test. She reports that she has been having moderate to heavy amount of bleeding consistent with a period. She complains of lower abdominal cramping. Patient states that she has not seen an [facility] for this or recently. Patient states that she has had no fevers or chills, denies dysuria or changes in his bowel habits. Patient reports that she had a elective by D&C in May of this year. This is on [place]. Patient reports that she had a minimal amount of bleeding after the D&C procedure. She then had 2 normal periods during the months of June and July. Her last menstrual cycle she believes was in the middle of August. Last Menstrual Period: 09/08/18 - Related Data Previous Rx's Medication Instructions Recorded Cephalexin [Keflex] 500 mg PO Q12HR 7 Days cap 05/05/18 Allergies Allergy/AdvReac Type Severity Reaction Status Date / Time No Known Allergies Allergy Verified 09/23/18 12:14 Review of Systems ROS Statement: Those systems with pertinent positive or pertinent negative responses have been documented in the HPI. ROS Other: All systems not noted in ROS Statement are negative. Past Medical History Past Medical History: No Reported History History of Any Multi-Drug Resistant Organisms: None Reported Past Surgical History: No Surgical Hx Reported Past Anesthesia/Blood Transfusion Reactions: No Reported Reaction, Unable to Obtain Past Psychological History: Anxiety, Bipolar, Depression Smoking Status: Never smoker Past Alcohol Use History: None Reported Past Drug Use History: None Reported - Past Family History Mother Additional Family Medical History / Comment(s): States having some form of thyroid disease General Exam - General Exam Comments Initial Comments: 23-year-old female. Alert and oriented 3. No significant distress. Limitations: no limitations General appearance: alert, in no apparent distress Head exam: Present: atraumatic, normocephalic, normal inspection Eye exam: Present: normal appearance, PERRL, EOMI. Absent: scleral icterus, conjunctival injection, periorbital swelling ENT exam: Present: normal exam, mucous membranes moist Neck exam: Present: normal inspection. Absent: tenderness, meningismus, lymphadenopathy Respiratory exam: Present: normal lung sounds bilaterally. Absent: respiratory distress, wheezes, rales, rhonchi, stridor Cardiovascular Exam: Present: regular rate, normal rhythm, normal heart sounds. Absent: systolic murmur, diastolic murmur, rubs, gallop, clicks GI/Abdominal exam: Present: soft, normal bowel sounds. Absent: distended, tenderness, guarding, rebound, rigid External exam: Present: other (Patient refuses pelvic exam.) Extremities exam: Present: normal inspection, full ROM, normal capillary refill. Absent: tenderness, pedal edema, joint swelling, calf tenderness Back exam: Present: normal inspection Neurological exam: Present: alert, oriented X3, CN II-XII intact Psychiatric exam: Present: normal affect, normal mood Skin exam: Present: warm, dry, intact, normal color. Absent: rash Course Vital Signs 09/23/18 12:12 Temperature 98.4 F Pulse Rate 62 Respiratory 18 Rate Blood Pressure 108/96 O2 Sat by Pulse 100 Oximetry Medical Decision Making - Medical Decision Making 21-year-old female presenting to emergency department today for vaginal bleeding and possible early . Patient is a female. She has a positive qualitative urine hCG test. Ultrasound was completed and is negative for IUP, bili of early ectopic or early related. She has some vaginal bleeding for the past 4 days. Patient refused pelvic: Exam for me. Patient's Rh is positive. Patient states she deals 849. I discussed the Patient needs follow- up for repeat hCG levels with her [facility]. Given a referral for Dr. Tomlin and patient's case discussed with staff at Dr. Rock's office. - Lab Data Result diagrams: 09/23/18 12:45 09/23/18 12:45 Lab Results 09/23/18 09/23/18 09/23/18 Range/Units 12:45 12:45 12:45 WBC 2.9 L (3.8-10.6) k/uL RBC 4.65 (3.80-5.40) m/uL Hgb 13.2 (11.4-16.0) gm/dL Hct 41.4 (34.0-46.0) % MCV 89.1 (80.0-100.0) fL MCH 28.5 (25.0-35.0) pg MCHC 32.0 (31.0-37.0) g/dL RDW 13.3 (11.5-15.5) % Plt Count 223 (150-450) k/uL Neutrophils % 54 % Lymphocytes % 35 % Monocytes % 6 % Eosinophils % 3 % Basophils % 1 % Neutrophils # 1.5 (1.3-7.7) k/uL Lymphocytes # 1.0 (1.0-4.8) k/uL Monocytes # 0.2 (0-1.0) k/uL Eosinophils # 0.1 (0-0.7) k/uL Basophils # 0.0 (0-0.2) k/uL PT 9.8 (9.0-12.0) sec INR 0.9 (<1.2) APTT 19.2 L (22.0-30.0) sec Sodium 138 (137-145) mmol/L Potassium 4.8 (3.5-5.1) mmol/L Chloride 104 (98-107) mmol/L Carbon Dioxide 27 (22-30) mmol/L Anion Gap 7 mmol/L BUN 8 (7-17) mg/dL Creatinine 0.66 (0.52-1.04) mg/dL Est GFR (CKD-EPI)AfAm >90 (>60 ml/min/1.73 sqM) Est GFR (CKD-EPI)NonAf >90 (>60 ml/min/1.73 sqM) Glucose 85 (74-99) mg/dL Calcium 9.2 (8.4-10.2) mg/dL HCG, Quant mIU/mL Urine Color Urine Appearance (Clear) Urine pH (5.0-8.0) Ur Specific Means (1.001-1.035) Urine Protein (Negative) Urine Glucose (UA) (Negative) Urine Ketones (Negative) Urine Blood (Negative) Urine Nitrite (Negative) Urine Bilirubin (Negative) Urine Urobilinogen (<2.0) mg/dL Ur Leukocyte Esterase (Negative) Urine RBC (0-5) /hpf Urine WBC (0-5) /hpf Ur Squamous Epith Cells (0-4) /hpf Urine Bacteria (None) /hpf Urine Mucus (None) /hpf Urine HCG, Qual (Not Detectd) Blood Type Blood Type Recheck 09/23/18 09/23/18 09/23/18 Range/Units 12:45 12:45 12:45 WBC (3.8-10.6) k/uL RBC (3.80-5.40) m/uL Hgb (11.4-16.0) gm/dL Hct (34.0-46.0) % MCV (80.0-100.0) fL MCH (25.0-35.0) pg MCHC (31.0-37.0) g/dL RDW (11.5-15.5) % Plt Count (150-450) k/uL Neutrophils % % Lymphocytes % % Monocytes % % Eosinophils % % Basophils % % Neutrophils # (1.3-7.7) k/uL Lymphocytes # (1.0-4.8) k/uL Monocytes # (0-1.0) k/uL Eosinophils # (0-0.7) k/uL Basophils # (0-0.2) k/uL PT (9.0-12.0) sec INR (<1.2) APTT (22.0-30.0) sec Sodium (137-145) mmol/L Potassium (3.5-5.1) mmol/L Chloride (98-107) mmol/L Carbon Dioxide (22-30) mmol/L Anion Gap mmol/L BUN (7-17) mg/dL Creatinine (0.52-1.04) mg/dL Est GFR (CKD-EPI)AfAm (>60 ml/min/1.73 sqM) Est GFR (CKD-EPI)NonAf (>60 ml/min/1.73 sqM) Glucose (74-99) mg/dL Calcium (8.4-10.2) mg/dL HCG, Quant 849.8 mIU/mL Urine Color Yellow Urine Appearance Clear (Clear) Urine pH 7.0 (5.0-8.0) Ur Specific Means 1.016 (1.001-1.035) Urine Protein Negative (Negative) Urine Glucose (UA) Negative (Negative) Urine Ketones Negative (Negative) Urine Blood Moderate H (Negative) Urine Nitrite Negative (Negative) Urine Bilirubin Negative (Negative) Urine Urobilinogen <2.0 (<2.0) mg/dL Ur Leukocyte Esterase Large H (Negative) Urine RBC 1 (0-5) /hpf Urine WBC 6 H (0-5) /hpf Ur Squamous Epith Cells 5 H (0-4) /hpf Urine Bacteria Rare H (None) /hpf Urine Mucus Rare H (None) /hpf Urine HCG, Qual Detected (Not Detectd) Blood Type Blood Type Recheck 09/23/18 Range/Units 13:44 WBC (3.8-10.6) k/uL RBC (3.80-5.40) m/uL Hgb (11.4-16.0) gm/dL Hct (34.0-46.0) % MCV (80.0-100.0) fL MCH (25.0-35.0) pg MCHC (31.0-37.0) g/dL RDW (11.5-15.5) % Plt Count (150-450) k/uL Neutrophils % % Lymphocytes % % Monocytes % % Eosinophils % % Basophils % % Neutrophils # (1.3-7.7) k/uL Lymphocytes # (1.0-4.8) k/uL Monocytes # (0-1.0) k/uL Eosinophils # (0-0.7) k/uL Basophils # (0-0.2) k/uL PT (9.0-12.0) sec INR (<1.2) APTT (22.0-30.0) sec Sodium (137-145) mmol/L Potassium (3.5-5.1) mmol/L Chloride (98-107) mmol/L Carbon Dioxide (22-30) mmol/L Anion Gap mmol/L BUN (7-17) mg/dL Creatinine (0.52-1.04) mg/dL Est GFR (CKD-EPI)AfAm (>60 ml/min/1.73 sqM) Est GFR (CKD-EPI)NonAf (>60 ml/min/1.73 sqM) Glucose (74-99) mg/dL Calcium (8.4-10.2) mg/dL HCG, Quant mIU/mL Urine Color Urine Appearance (Clear) Urine pH (5.0-8.0) Ur Specific Means (1.001-1.035) Urine Protein (Negative) Urine Glucose (UA) (Negative) Urine Ketones (Negative) Urine Blood (Negative) Urine Nitrite (Negative) Urine Bilirubin (Negative) Urine Urobilinogen (<2.0) mg/dL Ur Leukocyte Esterase (Negative) Urine RBC (0-5) /hpf Urine WBC (0-5) /hpf Ur Squamous Epith Cells (0-4) /hpf Urine Bacteria (None) /hpf Urine Mucus (None) /hpf Urine HCG, Qual (Not Detectd) Blood Type B Positive Blood Type Recheck [facility] ONLY - Radiology Data Radiology results: report reviewed Ultrasound shows a small amount of free fluid in the pelvis. No intrauterine . Currently with hCG differential diagnosis venous , normal too early to detect although ectopic is not excluded. Correlate with serial hCG and pelvic ultrasound. Disposition Clinical Impression: Threatened miscarriage Disposition: HOME SELF-CARE Condition: Good Instructions (If sedation given, give patient instructions): Threatened Miscarriage (ED) Additional Instructions: Patient advised to follow-up with [facility], and repeat hCG levels in 2 days. Patient started at pelvic rest. No heavy lifting. Is patient prescribed a controlled substance at d/c from ED?: No Referrals: None,Stated [REFERRING] - 1-2 days Pal Rock MD [STAFF PHYSICIAN] - 1-2 days Time of Disposition: 14:29
[2018-09-23 13:09] LABS: Appearance,Urine Clear (Clear); Bacteria,Urine Rare /hpf; Bilirubin,Urine Negative (Negative); Blood,Urine Moderate (Negative); Color,Urine Yellow; Glucose,Urine (UA) Negative (Negative); Ketones,Urine Negative (Negative); Leukocyte Esterase,Urine Large (Negative); Mucus,Urine Rare /hpf; Nitrite,Urine Negative (Negative); Protein,Urine Negative (Negative); RBC,Urine 1 /hpf (0-5); Specific Gravity,Urine 1.016 (1.001-1.035); Squamous Epithelial Cell,Urine 5 /hpf (0-4); Urobilinogen,Urine <2.0 mg/dL (<2.0)
[2018-09-23 13:11] LABS: African American GFR (CKD) >90 (>60 ml/min/1.73 sqM); Anion Gap 7 mmol/L; Blood Urea Nitrogen 8 mg/dL (7-17); Calcium 9.2 mg/dL (8.4-10.2); Carbon Dioxide 27 mmol/L (22-30); Chloride 104 mmol/L (98-107); Glucose 85 mg/dL (74-99); Sodium 138 mmol/L (137-145)
[2018-09-23 13:12] LABS: Potassium 4.8 mmol/L (3.5-5.1)
[2018-09-23 13:14] LABS: Basophils % (A) 1 %; Eosinophils # (A) 0.1 k/uL (0-0.7); Eosinophils % (A) 3 %; HCT 41.4 % (34.0-46.0); HGB 13.2 gm/dL (11.4-16.0); Lymphocytes % (A) 35 %; MCH 28.5 pg (25.0-35.0); MCV 89.1 fL (80.0-100.0); Mean Platelet Volume 7.1; Monocytes # (A) 0.2 k/uL (0-1.0); Monocytes % (A) 6 %; Neutrophils # (A) 1.5 k/uL (1.3-7.7); Neutrophils % (A) 54 %; Platelet Count 223 k/uL (150-450); RBC 4.65 m/uL (3.80-5.40); RDW 13.3 % (11.5-15.5); WBC 2.9 k/uL (3.8-10.6)
[2018-09-23 13:40] LABS: INR 0.9 (<1.2); Prothrombin Time 9.8 sec (9.0-12.0)
[2018-09-23 13:43] LABS: Partial Thromboplastin Time 19.2 sec (22.0-30.0)
--- NOTE | 2018-09-23 13:45 | US ---
EXAMINATION TYPE: Transabdominal DATE OF EXAM: 09/23/2018 1:29 PM COMPARISON: NONE CLINICAL HISTORY: pain. Bleeding. EXAM PERFORMED: Transvaginal (TV) and Transabdominal (TA) EXAM MEASUREMENTS: GESTATIONAL AGE / DATING Physician Established: Not yet established Dates by LMP: LMP unknown Dates by First Scan: No previous this is first scan Dates by Current Scan for: No IUP seen at this time MATERNAL ANATOMY Uterus: 8.5 x 5.0 x 6.2 cm Right Ovary: 3.3 x 2.4 x 2.3 cm Left Ovary: 2.9 x 2.1 x 1.6 cm Post CDS / Adnexa: wnl Presence of free fluid: yes Presence of corpus luteal cyst: no Presence of subchorionic bleed: no GESTATION / SURVEY IUP: No IUP seen at this time Beta HcG (if available): Detected IMPRESSION: 1. Small amount of free fluid in the pelvis. 2. No intrauterine . Correlate for beta-hCG. Differential diagnosis would include missed abo rtion, normal too early to detect, although ectopic not excluded. Correlate with serial beta hCG and pelvic ultrasound.
[2018-09-23 15:02] VITALS: BP 116/78; PULSE 66; TEMP 97.6
== END 2018-09-23 15:02 | disposition home or self-care (01) ==
LOC: EC 12:01
DX: O20.0 Threatened abortion (principal); Z3A.00 Weeks of gestation of pregnancy not specified
CPT/HCPCS: 36415; 76801; 76817; 80048; 81001; 81025; 84702; 85025; 85610; 85730; 86900; 86901; 96360; 96361; 99284

== ENCOUNTER → 2019-01-09 | Outpatient (CLI) | payer BC, OTHER ==
--- NOTE | 2019-01-09 15:49 | US ---
EXAMINATION TYPE: US thyroid st tissue head/neck DATE OF EXAM: 01/09/2019 COMPARISON: NONE CLINICAL HISTORY: E04.9 nontoxic goiter, unspecified. GLAND SIZE: Right Lobe: 5.5 x 1.5 x 2.2 cm Overall Parenchyma: homogenous Left Lobe: 4.8 x 1.4 x 1.9 cm Overall Parenchyma: homogeneous Isthmus Thickness: 0.3 cm NODULES RIGHT: # of nodules measured on right: 1 1. 1.3 X 0.5 x 1.1 cm hypoechoic mixed nodule at the upper pole with well-defined margins. This no dule is wider than tall and shows intranodular vascularity. Prior size: no prior LEFT: # of nodules measured on left: 0 ISTHMUS: # of nodules measured in the isthmus: 0 Bilateral neck scanned, no evidence of lymphadenopathy. There is 1.3 cm solid nodule anteriorly upper pole left thyroid lobe. IMPRESSION: As above. TR 4 lesion. Moderately Suspicious: Follow if ? 1 cm and less than 1.5 cm. Ult rasound surveillance advised.
== END | disposition home or self-care (01) ==
LOC: RADUSWWP 15:26
PROVIDERS: ATTEND Family Medicine
DX: E04.1 Nontoxic single thyroid nodule (principal)
CPT/HCPCS: 76536

== ENCOUNTER 2020-01-04 13:19 | Emergency (ER) | payer BC, OTHER ==
[2020-01-04 13:40] VITALS: PULSE 75
[2020-01-04] MEDS ORDERED: SODIUM CHLORIDE 0.9% 1,000 ML IV STA (13:56)
[2020-01-04] MEDS ORDERED: ACETAMINOPHEN TAB 500 MG TAB PO STA (13:59)
--- NOTE | 2020-01-04 14:00 | ED ---
Chest Pain HPI - General Chief Complaint: Chest Pain Stated Complaint: Chest Pain Time Seen by Provider: 01/04/20 13:47 Source: patient Mode of arrival: wheelchair Limitations: no limitations - History of Present Illness Initial Comments: Patient is a 24-year-old female presenting to the emergency department with a chief complaint of chest pain. Patient reports the pain is located on the left side of her chest in the left upper flank region. With radiation to the midsternal region. Patient reports any movement or exacerbation mixed pain worse. She also reports shortness of breath and feels like she cannot take a full deep breath due to the pain. She reports the pain started several days ago and has been gradually increasing severity. She denies previous history of DVT or PE. Denies unilateral leg swelling or recent prolonged periods of activity including hospital stay. Not nor on chemotherapy. Denies cough night sweats or chills. - Related Data Previous Rx's Medication Instructions Recorded Cephalexin [Keflex] 500 mg PO Q12HR 7 Days cap 05/05/18 Allergies Allergy/AdvReac Type Severity Reaction Status Date / Time No Known Allergies Allergy Verified 01/04/20 13:38 Review of Systems ROS Statement: Those systems with pertinent positive or pertinent negative responses have been documented in the HPI. ROS Other: All systems not noted in ROS Statement are negative. EKG Findings - EKG Comments: EKG Findings:: Sinus arrhythmia. Ventricular rate 61, RI 140, QRS 80, QTC 422. Past Medical History Past Medical History: No Reported History, Seizure Disorder History of Any Multi-Drug Resistant Organisms: None Reported Past Surgical History: No Surgical Hx Reported Past Anesthesia/Blood Transfusion Reactions: No Reported Reaction, Unable to Obtain Past Psychological History: Anxiety, Bipolar, Depression Smoking Status: Never smoker Past Alcohol Use History: None Reported Past Drug Use History: None Reported - Past Family History Mother Additional Family Medical History / Comment(s): States having some form of thyroid disease General Exam Limitations: no limitations General appearance: alert, in no apparent distress, obese Head exam: Present: atraumatic, normocephalic, normal inspection Eye exam: Present: normal appearance, PERRL, EOMI Pupils: Present: normal accommodation ENT exam: Present: normal exam, normal oropharynx, mucous membranes moist Neck exam: Present: normal inspection, full ROM. Absent: tenderness Respiratory exam: Present: normal lung sounds bilaterally, chest wall tenderness (Reproducible left-sided chest pain to palpation.). Absent: respiratory distress, wheezes, rales Cardiovascular Exam: Present: regular rate, normal rhythm, normal heart sounds GI/Abdominal exam: Present: soft. Absent: distended, tenderness, guarding, rebound Extremities exam: Present: normal inspection, full ROM, normal capillary refill. Absent: tenderness Back exam: Present: normal inspection, full ROM. Absent: tenderness, CVA tenderness (R), CVA tenderness (L) Neurological exam: Present: alert, oriented X3, normal gait Psychiatric exam: Present: normal affect, normal mood Skin exam: Present: warm, dry, intact, normal color Course Vital Signs 01/04/20 01/04/20 13:37 16:15 Temperature 98.4 F 98.1 F Pulse Rate 75 75 Respiratory 18 16 Rate Blood Pressure 128/86 122/78 O2 Sat by Pulse 98 99 Oximetry Chest Pain MDM - Differential Diagnosis PE, Chest Wall Syndrome - [facility] Patient is a 24-year-old female presenting to the emergency department with a chief complaint of chest pain. On physical examination, patient does have slight swelling in the right lower extremity. She also has localized tenderness in the left upper flank region that seems to be radiating to the midsternal region. The pain seemed to be exacerbated with deep breaths. She does have pleuritic chest pain and there was a concern for a PE. Chest x-ray with left ribs is unremarkable. D-dimer is negative. Initial troponin negative. EKG shows sinus rhythm and no ST or T-wave changes. CBC and CMP is unremarkable. This appears to be musculoskeletal chest wall pain. Advised the patient to alternate between Tylenol and Motrin for pain control. Strict return parameters were thoroughly discussed the patient was understanding and agreeable. Case discussed with physician. Disposition Clinical Impression: Atypical chest pain Disposition: HOME SELF-CARE Condition: Stable Instructions (If sedation given, give patient instructions): Chest Pain (ED) Additional Instructions: Follow with her primary care physician. Alternate between Tylenol and Motrin for pain control. Return to emergency department if symptoms worsen. Is patient prescribed a controlled substance at d/c from ED?: No Referrals: Basim Lucas DO [Primary Care Provider] - 1-2 days Time of Disposition: 15:45
[2020-01-04 14:53] LABS: ALT 33 U/L (4-34); AST 30 U/L (14-36); African American GFR (CKD) >90 (>60 ml/min/1.73 sqM); Albumin 4.3 g/dL (3.5-5.0); Alkaline Phosphatase 47 U/L (38-126); Anion Gap 7 mmol/L; Blood Urea Nitrogen 12 mg/dL (7-17); Calcium 9.1 mg/dL (8.4-10.2); Carbon Dioxide 25 mmol/L (22-30); Chloride 107 mmol/L (98-107); Glucose 89 mg/dL (74-99); Magnesium 1.8 mg/dL (1.6-2.3); Non-African American GFR(CKD) >90 (>60 ml/min/1.73 sqM); Sodium 139 mmol/L (137-145); Total Bilirubin 0.6 mg/dL (0.2-1.3); Total Protein 7.3 g/dL (6.3-8.2)
[2020-01-04 14:56] LABS: Basophils % (A) 1 %; Eosinophils # (A) 0.1 k/uL (0-0.7); Eosinophils % (A) 3 %; HCT 45.2 % (34.0-46.0); HGB 14.8 gm/dL (11.4-16.0); Lymphocytes # (A) 0.9 k/uL (1.0-4.8); Lymphocytes % (A) 49 %; MCH 29.9 pg (25.0-35.0); MCHC 32.8 g/dL (31.0-37.0); Mean Platelet Volume 7.7; Monocytes # (A) 0.1 k/uL (0-1.0); Monocytes % (A) 5 %; Neutrophils # (A) 0.8 k/uL (1.3-7.7); Neutrophils % (A) 41 %; Platelet Count 197 k/uL (150-450); RBC 4.96 m/uL (3.80-5.40); RDW 13.3 % (11.5-15.5); WBC 1.9 k/uL (3.8-10.6)
[2020-01-04 15:03] LABS: D-Dimer 0.41 mg/L FEU (<0.60); INR 0.9 (<1.2); Partial Thromboplastin Time 22.5 sec (22.0-30.0); Prothrombin Time 9.6 sec (9.0-12.0)
--- NOTE | 2020-01-04 15:03 | XR ---
Chest x-ray and left RIBS HISTORY: Chest pain Frontal view of the chest and 2 views of the left ribs submitted Correlation to prior chest x-ray 06/09/2016 Chest x-ray shows no acute cardiopulmonary disease. No evident airspace disease, pneumothorax, or ple ural effusion. Cardiac mediastinal silhouette, pulmonary vascularity and madleeine are stable. No evident displaced rib fracture. IMPRESSION: No acute abnormality.
[2020-01-04 16:16] VITALS: BP 122/78; RESP 16; TEMP 98.1
== END 2020-01-04 16:15 | disposition home or self-care (01) ==
LOC: EC 13:19
DX: R07.89 Other chest pain (principal); M79.89 Other specified soft tissue disorders; R10.812 Left upper quadrant abdominal tenderness; R07.81 Pleurodynia
CPT/HCPCS: 36415; 80053; 83735; 84484; 85025; 85379; 85610; 85730; 93005; 96360; 96361; 99285

== ENCOUNTER → 2020-02-25 | Outpatient (CLI) | payer OTHER ==
--- NOTE | 2020-02-25 12:25 | XR ---
EXAMINATION TYPE: XR forearm RT DATE OF EXAM: 02/25/2020 COMPARISON: None HISTORY: Pain TECHNIQUE: 2 view right forearm FINDINGS: No acute fractures or dislocations are evident. Soft tissues appear normal. Joint spaces ar e preserved. IMPRESSION: 1. Normal 2 view right forearm
--- NOTE | 2020-02-25 12:26 | XR ---
EXAMINATION TYPE: XR wrist complete RT DATE OF EXAM: 02/25/2020 COMPARISON: NONE HISTORY: Pain TECHNIQUE: 4 view right wrist FINDINGS: No acute fractures or dislocations are evident. Joint spaces are preserved. Soft tissues ar e normal. There is pain at the anatomic snuff box, nuclear medicine bone scan could be performed for additional evaluation. Follow-up exams can be performed 7-10 days from acute trauma for continued pain. IMPRESSION: 1. Normal 4 view right wrist
== END | disposition home or self-care (01) ==
LOC: RADXRMAIN 11:56
PROVIDERS: ATTEND Emergency Medicine
DX: M79.631 Pain in right forearm (principal); S63.501A Unspecified sprain of right wrist, initial encounter

== ENCOUNTER 2020-12-29 15:23 | Outpatient (CLI) | payer BC, OTHER ==
[2020-12-29] MEDS ORDERED: BETAMET ACET-BETAMETH SOD PHOS 6 MG/ML MDV IM SCH (16:30)
[2020-12-29 17:53] VITALS: BP 144/80; PULSE 96; RESP 18; TEMP 97.3
--- NOTE | 2021-01-10 07:55 | P.MSEPDOC ---
Presenting Problems - Arrival Data Date of Arrival on Unit: 12/29/20 Time of Arrival on Unit: 15:23 Mode of Transport: Wheelchair - Complaint OB-Reason for Admission/Chief Complaint: Pain Comment: pt presents to triage for abd pain and vaginal pressure Medical History - Information : 4 Para: 2 Term: 0 : 2 Abortions: Spontaneous or Elective: 1 Number of Living Children: 2 - Gestational Age Gestational Age by ANNE (wks/days): 31 Weeks and 1 Days - History Complications: Prior Review of Systems - Review of Systems Constitutional: No problems Breast: No problems ENT: No problems Cardiovascular: No problems Respiratory: No problems Gastrointestinal: No problems Genitourinary: No problems Musculoskeletal: No problems Neurological: No problems Skin: No problems Vital Signs - Temperature Temperature: 97.3 F Temperature Source: Temporal Artery Scan - Pulse Right Brachial Pulse Rate: 96 Pulse Assessment Method: Automatic Cuff - Respirations Respiratory Rate: 18 Oxygen Delivery Method: Room Air - Blood Pressure Right Arm Blood Pressure: 144/80 Blood Pressure Mean: 101 Blood Pressure Source: Automatic Cuff Medical Screen Scoring - Cervical Exam Dilation (cm): 1 Effacement (%): 60 Station: -2 Membranes: Intact - Uterine Contractions Frequency From (mins): 0 - Assessment - Baby A Baseline FHR: 135 Heart Rate - NICHD Category: Category I (Normal) NST: Reactive Physician Notification - Physician Notified Physician Notified Date: 12/29/20 Physician Notified Time: 16:13 Physician: Makenzie Castillo New Order Received: Yes - Notification Comment Comment: reactive nst, FFN was negative, no change with cervical exam, 1st dose of celestone given IM, 2nd dose to be given tomorrow at [facility], information faxed to unit, last bp before discharge was 118/58 Maternal Triage Index - Maternal Triage Index Presenting for scheduled procedure w/no complaint: No - Stat/Priority 1 Stat Priority 1: No - Urgent/Priority 2 Urgent Priority 2: Yes Provider Notified: Makenzie Castillo Provider Notified Time: 16:13 Criteria Met for Priority 2: pt is 31 1/7 GA with hx of 2 vaginal deliveries Disposition - Disposition OB Disposition: Triage, Discharge to home, Written follow up instructions reviewed Discharge Date: 12/29/20 Discharge Time: 17:30 I agree with the RN Medical Screening Exam: Yes Case reviewed; plan agreed upon as documented in EMR&OBIX.: Yes Diagnosis: false labor
== END 2020-12-29 17:30 | disposition home or self-care (01) ==
LOC: FBPOP 15:23
PROVIDERS: ATTEND Obstetrics & Gynecology
DX: O47.03 False labor before 37 completed weeks of gestation, third trimester (principal); Z3A.31 31 weeks gestation of pregnancy
CPT/HCPCS: 59025; 99214; 96372; 82731; J0702

== ENCOUNTER 2021-01-13 20:52 | Outpatient (CLI) | payer BC, OTHER ==
[2021-01-14 01:35] VITALS: BP 112/78; PULSE 81; RESP 16; TEMP 96.9
--- NOTE | 2021-01-15 11:18 | P.MSEPDOC ---
Presenting Problems - Arrival Data Date of Arrival on Unit: 01/14/21 Time of Arrival on Unit: 20:52 Mode of Transport: Ambulatory - Complaint OB-Reason for Admission/Chief Complaint: Pain Comment: Patient presents to triage with report of constant lower abdominal and lower. back back pain that began at 0830 this morning and is rated at a 5/10. Medical History - Information : 4 Para: 2 Term: 1 : 1 Abortions: Spontaneous or Elective: 1 Number of Living Children: 2 - Gestational Age Gestational Age by ANNE (wks/days): 33 Weeks and 3 Days - History Complications: Prior Review of Systems - Review of Systems Constitutional: No problems Breast: No problems ENT: No problems Cardiovascular: No problems Respiratory: No problems Gastrointestinal: No problems Genitourinary: No problems Musculoskeletal: No problems Neurological: No problems Skin: No problems Vital Signs - Temperature Temperature: 96.9 F Temperature Source: Temporal Artery Scan - Pulse Right Brachial Pulse Rate: 81 Pulse Assessment Method: Automatic Cuff - Respirations Respiratory Rate: 16 Oxygen Delivery Method: Room Air - Blood Pressure Right Arm Blood Pressure: 112/78 Blood Pressure Mean: 89 Blood Pressure Source: Automatic Cuff Medical Screen Scoring - Cervical Exam Dilation (cm): 2 Effacement (%): 60 Station: -2 Membranes: Intact - Assessment - Baby A Baseline FHR: 140 Heart Rate - NICHD Category: Category I (Normal) NST: Reactive Physician Notification - Physician Notified Physician Notified Date: 01/13/21 Physician Notified Time: 21:11 Physician: Makenzie Castillo New Order Received: Yes - Notification Comment Comment: 2110- orders recieved for amnisure and vaginal exam. FFN cannot be done due to recent. bleeding. 2134- Dr. Castillo called with report on negative amnisure and cervical exam. Patient continues to be free from contractions with reassuring heart tones. Patient. approved for discharge at this time. Maternal Triage Index - Maternal Triage Index Presenting for scheduled procedure w/no complaint: No - Stat/Priority 1 Stat Priority 1: No - Urgent/Priority 2 Urgent Priority 2: No - Prompt/Priority 3 Prompt Priority 3: Yes Criteria Met for Priority 3: Patient presents to triage with report of constant lower abdominal and lower. back back pain that began at 0830 this morning and is rated at a 5/10. Disposition - Disposition OB Disposition: Admit Discharge Date: 01/13/21 Discharge Time: 21:40 I agree with the RN Medical Screening Exam: Yes Case reviewed; plan agreed upon as documented in EMR&OBIX.: Yes Diagnosis: abdominal pain in
== END 2021-01-13 21:40 ==
LOC: FBPOP 20:52
PROVIDERS: ATTEND Obstetrics & Gynecology
DX: O26.893 Other specified pregnancy related conditions, third trimester (principal); R10.9 Unspecified abdominal pain; Z3A.33 33 weeks gestation of pregnancy
CPT/HCPCS: 59025; 99213

== ENCOUNTER 2021-01-21 10:17 | Outpatient (CLI) | payer BC, OTHER ==
[2021-01-21] MEDS ORDERED: AMPICILLIN 2,000 MG in SODIUM CHLORIDE 0.9% 100 ML IVPB STA (10:54)
[2021-01-21] MEDS ORDERED: LACTATED RINGERS 1,000 ML IV SCH (11:00)
--- NOTE | 2021-01-21 11:33 | P.HPOB ---
History of Present Illness H&P Date: 01/21/21 Chief Complaint: intrauterine at 34 weeks: premature rupture membranes Becky is a 25-year-old with 2 prior deliveries that arrives to labor and delivery today complaining of spontaneous rupture membranes. She relates that she has been leaking fluid for at least 2 days and that she on at least 2 occasions has tried to contact her primary family service counselor (Mathew Ramirez DO) chromic she relates did not all her back. She relates that she spoke with labor and delivery at [facility] and that no further medications between she, by , or her primary hospital was done. She relates that she is continuing to leak and is working an adult diaper the last 2 days waiting for a call back. Today her family brought her to labor and delivery at [facility]. Confirmation of rupture membranes is made with amateur. She was seen in our hospital approximately 2 weeks ago and did receive 1 dose of Celestone at that time. She relates that the following day she contacted her family service counselor who told her she did not need a second dose. She also relates that she was not offered maternal medicine consultation or steroids/progesterone to help stave off any risk for labor despite having to deliveries at 36 and 32 weeks. Her vital signs are stable and she is afebrile. We have a category 1 tracing and she is not dimas. She is dilated to approximately 3 cm 80% effaced -3 station I am ordering a stat ultrasound just for JOSE DE JESUS and EFW. We'll plan transfer of care to [facility] which is the hospital that she delivered her 32 week baby at. In discussing why she was transferred at 32 weeks with her first delivery, she is unclear and she is relates that she doesn't really understand why she was transferred and delivered at that time. Her 36 week delivery was normal. She denies any other medical problems or surgeries. No family history of anything significant. She denies alcohol, street drugs, or tobacco. She denies any ALLERGIES. on physical exam vital signs are stable and she is afebrile. Heart regular, lungs clear, extremities without pain. Abdomen soft gravid uterus is noted. Assessment intrauterine at 34 weeks. Land transfer of care to tertiary care center. All questions are answered for her at this time. I do not have any records. [facility] relates that they have a few labs only. There is no way to directly contact Dr. Ramirez as there office has no mechanism for leaving a message and having the physician respond. Past Medical History Past Medical History: No Reported History, Seizure Disorder History of Any Multi-Drug Resistant Organisms: None Reported Past Surgical History: No Surgical Hx Reported Past Anesthesia/Blood Transfusion Reactions: No Reported Reaction, Unable to Obtain Smoking Status: Never smoker - Past Family History Mother Additional Family Medical History / Comment(s): States having some form of thyroid disease Medications and Allergies Home Medications Medication Instructions Recorded Confirmed Type Pantoprazole Sodium [Protonix] 20 mg PO DAILY 12/29/20 01/21/21 History Pnv No.95/Ferrous Fum/Folic AC 1 each PO DAILY 12/29/20 01/21/21 History [ Multivitamin Tablet] Allergies Allergy/AdvReac Type Severity Reaction Status Date / Time No Known Allergies Allergy Verified 12/29/20 15:58 Exam Osteopathic Statement: *. No significant issues noted on an osteopathic structural exam other than those noted in the History and Physical/Consult. Intake and Output 01/20/21 01/21/21 01/21/21 22:59 06:59 14:59 Other: Weight 93.44 kg
[2021-01-21] MEDS ORDERED: BETAMET ACET-BETAMETH SOD PHOS 6 MG/ML MDV IM STA (12:04)
--- NOTE | 2021-01-21 12:16 | US ---
EXAMINATION TYPE: US OB limited DATE OF EXAM: 01/21/2021 COMPARISON: NONE CLINICAL HISTORY: prolonged rupture of membranes. Leaking fluid, OB Limited for JOSE DE JESUS and EFW only EXAM PERFORMED: Transabdominal (TA) GESTATIONAL AGE / DATING Physician Established: (34 weeks/3 days) EDC: 03/01/2021 Dates by Current Scan: (34 weeks/1 days) EDC: 03/03/2021 SURVEY JOSE DE JESUS: 11.9 cm Normal Ultrasound evidence of premature rupture of membranes? No HEART RATE: 160 bpm RHYTHM: Normal BPD: 8.4 cm 33 weeks / 6 days HC: 30.3 cm 33 weeks / 5 days AC: 29.1 cm 33 weeks / 1 days FL: 6.9 cm 35 weeks / 4 days ESTIMATED WEIGHT IN GRAMS: 2303 grams ESTIMATED WEIGHT IN LBS/OZ: 5 lbs. 1 oz. WEIGHT PERCENTAGE BASED ON ESTABLISHED DATE: 30 % HC/AC: 1.04 Normal FL/AC: 24% Normal IMPRESSION: JOSE DE JESUS and EFW as indicated above.
[2021-01-21 12:36] VITALS: BP 134/79; PULSE 89; RESP 18; TEMP 97.3
== END 2021-01-21 13:49 | disposition other institution (70) ==
LOC: FBPOP 10:17
PROVIDERS: ATTEND Obstetrics & Gynecology
DX: O42.913 Preterm premature rupture of membranes, unspecified as to length of time between rupture and onset of labor, third trimester (principal); Z3A.34 34 weeks gestation of pregnancy
CPT/HCPCS: 59025; 99214; 96361; 96365; 96372; 84112; 76815; J0290; J0702

== ENCOUNTER → 2021-09-07 | Outpatient (CLI) | payer BC, OTHER ==
[~2021-09-07] MED LIST: AZITHROMYCIN 500 MG TAB PO STA; ONDANSETRON 4 MG/2 ML VIAL IVP STA
[2021-09-07] MEDS: LACTATED RINGERS 1,000 ML IV SCH ×3 (17:00→18:25)
[2021-09-07 17:48] LABS: T4, Free (Free Thyroxine) 3.31 ng/dL (0.78-2.19)
[2021-09-07 20:11] VITALS: BP 131/75; PULSE 80; RESP 15; TEMP 97.2
== END ==
LOC: FBPOP 16:34
PROVIDERS: ATTEND Obstetrics & Gynecology
DX: O21.9 Vomiting of pregnancy, unspecified (principal); Z3A.09 9 weeks gestation of pregnancy
CPT/HCPCS: 96361; 96374; 84439; 84443; J2405

== ENCOUNTER 2021-12-26 18:53 | Outpatient (CLI) | payer BC, OTHER ==
[2021-12-26 20:13] LABS: Appearance,Urine Cloudy (Clear); Bacteria,Urine Rare /hpf; Bilirubin,Urine Negative (Negative); Blood,Urine Negative (Negative); Color,Urine Yellow; Glucose,Urine (UA) Negative (Negative); Hyaline Casts,Urine 1 /lpf (0-2); Ketones,Urine 4+ (Negative); Leukocyte Esterase,Urine Large (Negative); Mucus,Urine Moderate /hpf; Nitrite,Urine Negative (Negative); Protein,Urine 1+ (Negative); RBC,Urine 4 /hpf (0-5); Specific Gravity,Urine 1.032 (1.001-1.035); Squamous Epithelial Cell,Urine 9 /hpf (0-4); Urobilinogen,Urine <2.0 mg/dL (<2.0); WBC,Urine 13 /hpf (0-5)
[2021-12-26 21:11] VITALS: BP 111/65; PULSE 71; RESP 15; TEMP 97.2
--- NOTE | 2021-12-31 11:03 | P.MSEPDOC ---
Presenting Problems - Arrival Data Date of Arrival on Unit: 12/26/21 Time of Arrival on Unit: 18:53 Mode of Transport: Ambulatory - Complaint OB-Reason for Admission/Chief Complaint: Pain Comment: Patient arrived to triage with lower pelvic pain intermittent and after urinating 10/25. Patient states it started yesterday. Patient denies intercourse in the last 24 hrs. Patient has small amount of white discharge on underpants observed by RN. Patient states she was treated for chlamydia and trichomonis 2- [address] Castillo. Medical History - Information : 5 Para: 3 : 3 Abortions: Spontaneous or Elective: 1 Number of Living Children: 3 - Gestational Age Gestational Age by ANNE (wks/days): 26 Weeks and 2 Days - History Complications: Prior Sexually Transmitted Diseases: Chlamydia Comment: Patient states she is high risk due to previous pre term deliveries. Review of Systems - Review of Systems Constitutional: No problems Breast: No problems ENT: No problems Cardiovascular: No problems Respiratory: No problems Gastrointestinal: No problems Genitourinary: No problems Musculoskeletal: No problems Neurological: No problems Skin: No problems Vital Signs - Temperature Temperature: 97.2 F Temperature Source: Temporal Artery Scan - Pulse Pulse Oximetery Pulse Rate: 71 Pulse Assessment Method: Pulse Oximetry - Respirations Respiratory Rate: 15 Oxygen Delivery Method: Room Air O2 Sat by Pulse Oximetry: 100 - Blood Pressure Right Arm Blood Pressure: 111/65 Blood Pressure Mean: 80 Blood Pressure Source: Automatic Cuff Medical Screen Scoring - Uterine Contractions Frequency From (mins): 0 - Assessment - Baby A Baseline FHR: 140 Physician Notification - Physician Notified Physician Notified Date: 12/26/21 Physician Notified Time: 19:43 Physician: Dr. Campos New Order Received: Yes - Notification Comment Comment: RN received orders to collect urinalysis only on patient and call Dr with results. Dr. Melendez aware of FHR by doppler in the 140's, maternal and status. pain status. [address] Melendez with Urinalysis results and patient is to hydrate follow discharge instructions and call 12/27/21 in the morning for a follow up appt with Dr. Castillo. , patient verbalized understanding. Maternal Triage Index - Urgent/Priority 2 Urgent Priority 2: Yes Provider Notified: Lester Melendez Provider Notified Time: 19:43 Criteria Met for Priority 2: Lower pelvic pain 10/25 Disposition - Disposition OB Disposition: Discharge to home Discharge Date: 12/26/21 Discharge Time: 20:40 I agree with the RN Medical Screening Exam: Yes Physician's MSE Comment: I have neither seen nor examined the patient. Case reviewed; plan agreed upon as documented in EMR&OBIX.: Yes Diagnosis: RELATED CONDITIONS, UNSPECIFIED, THIRD TRIMESTER
== END 2021-12-26 20:40 | disposition home or self-care (01) ==
LOC: FBPOP 18:53
PROVIDERS: ATTEND Obstetrics & Gynecology
DX: O26.892 Other specified pregnancy related conditions, second trimester (principal); Z3A.26 26 weeks gestation of pregnancy
CPT/HCPCS: 81001; 87086; 99203; 99213

== ENCOUNTER 2022-02-08 14:27 | Outpatient (CLI) | payer BC, OTHER ==
[2022-02-08] MEDS ORDERED: LACTATED RINGERS 1,000 ML IV SCH (15:30)
[2022-02-08] MEDS ORDERED: ACETAMINOPHEN TAB 500 MG TAB PO STA (16:35)
[2022-02-08] MEDS ORDERED: NIFEdipine 10 MG CAP PO ONE (16:36)
--- NOTE | 2022-02-08 16:39 | US ---
EXAMINATION TYPE: US OB BPP wo non-stress DATE OF EXAM: 02/08/2022 COMPARISON: NONE CLINICAL HISTORY: decreased movment. TECHNIQUE: Transabdominal (TA). Scoring by the field producer during real-time assessment. FINDINGS: BPP PARAMETERS: HEART RATE: 149 bpm RHYTHM: Normal JOSE DE JESUS: 11.2 DIAPHRAGM IMAGED: Yes BPP SCORIN. Breathin (1 episode of breathing of 30 second duration in 30 minutes of scanning time) 2. Movement: 2 (at least 3 discrete body movements in 30 minutes) 3. Tone: 2 (1 episode of active flexion/extension of limb) 4. JOSE DE JESUS: 2 (JOSE DE JESUS index > 5cm) ARMATURE INSPECTOR NOTES: IMPRESSION: TOTAL SCORE: 8 / 8 Normal exam
[2022-02-08 17:07] LABS: Appearance,Urine Cloudy (Clear); Bacteria,Urine Occasional /hpf; Bilirubin,Urine Negative (Negative); Blood,Urine Small (Negative); Color,Urine Yellow; Glucose,Urine (UA) Negative (Negative); Ketones,Urine 4+ (Negative); Leukocyte Esterase,Urine Large (Negative); Mucus,Urine Few /hpf; Nitrite,Urine Negative (Negative); PH, Urine 6.5 (5.0-8.0); Protein,Urine Trace (Negative); RBC,Urine 4 /hpf (0-5); Specific Gravity,Urine 1.013 (1.001-1.035); Squamous Epithelial Cell,Urine 4 /hpf (0-4); Urobilinogen,Urine <2.0 mg/dL (<2.0); WBC,Urine 19 /hpf (0-5)
[2022-02-08 19:01] VITALS: BP 114/64; PULSE 90; RESP 16; TEMP 96.8
--- NOTE | 2022-02-20 20:44 | P.MSEPDOC ---
Presenting Problems - Arrival Data Date of Arrival on Unit: 02/08/22 Time of Arrival on Unit: 14:27 Mode of Transport: Portable - Complaint OB-Reason for Admission/Chief Complaint: Pain Comment: Patient having pain in back and lower abdomen /10 with contractions. Medical History - Information : 4 Para: 3 - Gestational Age Gestational Age by ANNE (wks/days): 32 Weeks and 4 Days - History Complications: Prior Review of Systems - Review of Systems Constitutional: No problems Breast: No problems ENT: No problems Cardiovascular: No problems Respiratory: No problems Gastrointestinal: No problems Genitourinary: No problems Musculoskeletal: No problems Neurological: No problems Skin: No problems Vital Signs - Temperature Temperature: 96.8 F Temperature Source: Temporal Artery Scan - Pulse Pulse Oximetery Pulse Rate: 90 Pulse Assessment Method: Pulse Oximetry - Respirations Respiratory Rate: 16 Oxygen Delivery Method: Room Air O2 Sat by Pulse Oximetry: 99 - Blood Pressure Right Arm Blood Pressure: 114/64 Blood Pressure Mean: 80 Blood Pressure Source: Automatic Cuff Medical Screen Scoring - Assessment - Baby A Baseline FHR: 145 Heart Rate - NICHD Category: Category I (Normal) NST: Reactive Physician Notification - Physician Notified Physician Notified Date: 02/08/22 Physician Notified Time: 15:05 Physician: Carlene Hickey Maternal Triage Index - Stat/Priority 1 Stat Priority 1: No - Urgent/Priority 2 Urgent Priority 2: No - Prompt/Priority 3 Prompt Priority 3: Yes Criteria Met for Priority 3: Patient 32 4/7 presents to triage for contractions and decreased movement. Spoke to Dr. Hickey at 1505 orders given to check cervix, obtain FFN, IV bolus, and a BPP. Disposition - Disposition OB Disposition: Discharge to home Transferred to:: home Discharge Date: 02/08/22 Discharge Time: 18:30 I agree with the RN Medical Screening Exam: Yes Physician's MSE Comment: I have neither seen nor examined the patient. Case reviewed; plan agreed upon as documented in EMR&OBIX.: Yes Diagnosis: UNSP TRACT INFECTION IN , SECOND TRIMESTER
== END 2022-02-08 18:30 | disposition home or self-care (01) ==
LOC: FBPOP 14:27
PROVIDERS: ATTEND Obstetrics & Gynecology
DX: O26.893 Other specified pregnancy related conditions, third trimester (principal); Z3A.32 32 weeks gestation of pregnancy; O23.43 Unspecified infection of urinary tract in pregnancy, third trimester
CPT/HCPCS: 59025; 76819; 81001; 87086; 96366; 96367; 99213

== ENCOUNTER → 2022-02-14 | Outpatient (CLI) | payer BC, OTHER ==
[~2022-02-14] MED LIST changes: -AZITHROMYCIN 500 MG TAB PO STA; +BETAMET ACET-BETAMETH SOD PHOS 6 MG/ML MDV IM SCH; +LACTATED RINGERS 1,000 ML IV ONE; +LACTATED RINGERS 1,000 ML IV SCH; +MAGNESIUM SULFATE GM 6 GM in SODIUM CHLORIDE 0.9% 100 ML IVPB ONE; +MAGNESIUM SULFATE-WATER PMX 20 GM in WATER FOR INJECTION 1 500ML.BAG IV SCH; -ONDANSETRON 4 MG/2 ML VIAL IVP STA; +PENICILLIN G POTASSIUM 2,500,000 UNIT in DEXTROSE 5% IN WATER 100 ML IVPB SCH; +PENICILLIN G POTASSIUM 5,000,000 UNIT in DEXTROSE 5% IN WATER 100 ML IVPB STA
[2022-02-14 19:48] LABS: Basophils % (A) 0 %; Eosinophils % (A) 1 %; HCT 38.2 % (34.0-46.0); Lymphocytes # (A) 1.1 k/uL (1.0-4.8); Lymphocytes % (A) 21 %; MCH 29.3 pg (25.0-35.0); MCHC 34.1 g/dL (31.0-37.0); MCV 85.8 fL (80.0-100.0); Mean Platelet Volume 9.6; Monocytes # (A) 0.3 k/uL (0-1.0); Monocytes % (A) 5 %; Neutrophils % (A) 72 %; Platelet Count 190 k/uL (150-450); RBC 4.46 m/uL (3.80-5.40); RDW 13.8 % (11.5-15.5); WBC 5.5 k/uL (3.8-10.6)
--- NOTE | 2022-02-14 19:50 | P.HPOB ---
History of Present Illness H&P Date: 02/14/22 Chief Complaint: Decreased movement and uterine contractions since 10 AM This is 26-year-old black female 6 para 1-23 EDC 04/01/2022 at 33-3/7 weeks' gestation. Patient states she has experienced decreased movement and increasing contractions since 10 AM. She presents to triage tonight with uterine contractions every 5 minutes apart, moderate intensity. She was treated for a urinary tract infection on and took 5 days of the 7 days of a ntibiotics. She denies vaginal bleeding or fluid leakage. Past medical history is significant for childhood seizures, no seizures in the past 10 years. Past surgical history is negative. Current medications Protonix daily, vitamin daily. Obstetric history 2014 2 pound vaginal delivery female at 33 weeks gestation. 2015 6 lbs. 8 oz. vaginal delivery, female , full-term. 2018 voluntary termination of , first trimester. 2019 spontaneous AB, no D&C required. 2020 vaginal delivery at 32 weeks' gestation, male infant, 3 pounds birthweight. Social history patient is single, she denies alcohol tobacco or drug use. Family history is essentially unremarkable. On exam patient is 5 foot 5 and half inches, 194 pounds, blood pressure 125/69, pulse 91. The chest is clear in all millan. Extremities reveal no edema. Reflexes are normal. Fundal height is consistent with 33 weeks gestation. Cervix is 3-4 cm dilated, 60% effaced, -2 station, vertex presentation. Uterine contractions are occurring approximately every 5 minutes apart. heart rate is consistent with reactive NST. Impression: 33-3/7 weeks intrauterine , early active labor. Plan: Magnesium sulfate 6 g loading dose, then 2 g per hour. Check CBC and type and screen. Penicillin G 6 million units now. Betamethasone IM 1 now . If labor can be arrested, patient will be transferred to tertiary care center this evening. Patient understands our treatment care and plan. Dr. Messina hostel parent notified. Review of Systems Constitutional: Reports as per HPI Past Medical History Past Medical History: No Reported History, Seizure Disorder History of Any Multi-Drug Resistant Organisms: None Reported Past Surgical History: No Surgical Hx Reported Past Anesthesia/Blood Transfusion Reactions: No Reported Reaction, Unable to Obtain Smoking Status: Never smoker - Past Family History Mother Additional Family Medical History / Comment(s): States having some form of thyroid disease Medications and Allergies Home Medications Medication Instructions Recorded Confirmed Type Pantoprazole Sodium 20 mg PO DAILY 12/26/21 02/14/22 History Vit No.179/Iron/Folic 1 each PO DAILY 12/26/21 02/14/22 History [ Tablet] Allergies Allergy/AdvReac Type Severity Reaction Status Date / Time No Known Allergies Allergy Verified 02/14/22 18:44 Exam Intake and Output 02/14/22 02/14/22 02/14/22 06:59 14:59 22:59 Other: Weight 87.997 kg See dictation under HPI please Assessment and Plan Assessment: 33-3/7 weeks intrauterine , early labor. History of delivery 2 in the past. Recent chlamydial infection, treated, reculture negative. Recent UTI, treated 5 days of 7 day prescription. Plan: Magnesium sulfate 6 g loading dose now, then 2 g per hour. Betamethasone is given 1. Penicillin G 6 million units now. Close maternal and surveillance. If I am able to arrest this labor, patient will be transferred to tertiary care facility. [place] Dr. Messina is aware. Time with Patient: Greater than 30
--- NOTE | 2022-02-14 21:16 | P.DS ---
Providers Date of admission: 02/14/22 Expected date of discharge: 02/14/22 Attending physician: Ele Atkins Primary care physician: Stated None Hospital Course: This is a 26-year-old 6 para 1223 EDC 04/01/2022 at 33-3/7 weeks' gest ation who presented in labor. She was given magnesium sulfate 6 g loading dose, now 2 g/h maintenance dose. She was given betamethasone IM 1. She was given penicillin G 6 million units. Patient has been monitored for one and a half hours. Initially uterine contractions were occurring every 4-5 minutes apart and strong. At this time they are every 10-12 minutes apart and mild. Fetus is active, reactive NST noted. History is significant for spontaneous vaginal deliveries 3, 39 weeks, 33 weeks, and 32 weeks' gestation. Current history is also significant for chlamydia infection in July 2021, treated with antibiotics, reculture on 01/25/2022 was negative. Please see my dictated history and physical for further details. At this time patient's cervix is 3-4 cm dilated, soft, anterior, -2 station, 70% effaced. is vertex. There has been no cervical change in 1-1/2 hours. The case has been discussed with Dr. Friedman at [facility] who is accepting transfer up to their labor and delivery unit. Warner catheter has been placed. EMS has been notified. The patient understands the risks and benefits of our current situation, our nursery not equipped to handle an of this gestational age. All questions answered. I believe that the patient is stable for transfer at this time and that delivery is not imminent. All records copied. Patient Condition at Discharge: Fair Plan - Discharge Summary Discharge Rx Participant: No New Discharge Prescriptions: No Action Vit No.179/Iron/Folic [ Tablet] 1 each PO DAILY Pantoprazole Sodium 20 mg PO DAILY Discharge Medication List Pantoprazole Sodium 20 mg PO DAILY 12/26/21 [History] Vit No.179/Iron/Folic [ Tablet] 1 each PO DAILY 12/26/21 [History] Discharge Disposition: DC/TRNS INTERMEDIATE CARE FAC
== END ==
LOC: FBPOP 18:38
PROVIDERS: ATTEND Obstetrics & Gynecology
DX: O36.8130 Decreased fetal movements, third trimester, not applicable or unspecified (principal); O99.353 Diseases of the nervous system complicating pregnancy, third trimester; G40.909 Epilepsy, unspecified, not intractable, without status epilepticus; Z3A.33 33 weeks gestation of pregnancy
CPT/HCPCS: 59025; 99214; 96361; 96365; 96366; 96367; 96372; 36415; 86900; 86901; 85025; 86850; J3475 ×2; J2540; J0702; 99215

== ENCOUNTER 2022-02-21 16:04 | Inpatient (IN) | payer BC, OTHER ==
[2022-02-21] MEDS ORDERED: LACTATED RINGERS 1,000 ML IV SCH (16:30)
[2022-02-21] MEDS ORDERED: TERBUTALINE 1 MG/ML VIAL SQ PRN (16:30)
[2022-02-21] MEDS ORDERED: LIDOCAINE 0.5% (PF) 5 MG/ML (50 ML SDV) SQ PRN (16:30)
[2022-02-21] MEDS ORDERED: PENICILLIN G POTASSIUM 5,000,000 UNIT in DEXTROSE 5% IN WATER 100 ML IVPB STA ×2 (16:30)
[2022-02-21] MEDS ORDERED: OXYTOCIN 10 UNIT/ML 1 ML VIAL IM ONE (17:08)
--- NOTE | 2022-02-21 17:39 | P.HPOB ---
History of Present Illness H&P Date: 02/21/22 Chief Complaint: Spontaneous rupture of membranes at 34-3/7 weeks gestation This is a 26 year old 5 para 1-23 woman who has an estimated due date of 04/08/2022 based on LMP consistent with 9 week ultrasound. She presents at 33- 4/7 weeks' gestation with a large gush of amniotic fluid at approximately 3300. She reports this is clear fluid. She is having increasing contractions and pelvic pressure. Her obstetric history is significant for recently being discharged from obstetric observation and [facility] for [facility]. She was transferred there from our facility at 03-08 with contractions and cervix dilated 3-4 cm. She received magnesium sulfate tocolyse this, steroids for lung maturity and antibiotics. She remained stable for several days without cervical change and she was therefore discharged home yesterday. She was resting comfortably this afternoon when she had spontaneous rupture of membranes and no contractions. Previous obstetric history is significant for deliveries 2. In 2020 she had a 33 week P PROM delivery, 2014 she had a 36 week spontaneous vaginal delivery and a term vaginal delivery in 2015. She is also had 2 spontaneous miscarriages the most recent of which was in March 2021. Laboratory data: Blood type B positive, antibody screen negative, rubella immune, VDRL nonreactive, hepatitis B surface antigen negative, chlamydia and trichomonas cultures positive and the first trimester. She has had intermittent care throughout this . She is known hyperthyroid and was treated for positive Trichomonas and chlamydia earlier in the . She was unable to complete full antibiotic treatments for this. Upon admission to labor and delivery triage patient cervix found to be 5 cm dilated, 80% effaced and the vertex in the -2 station. Rupture of membranes is confirmed. status reassuring and she is dimas every 3-5 minutes spontaneously. Review of Systems All systems: negative Past Medical History Past Medical History: No Reported History, Seizure Disorder, Thyroid Disorder History of Any Multi-Drug Resistant Organisms: None Reported Past Surgical History: No Surgical Hx Reported Past Anesthesia/Blood Transfusion Reactions: No Reported Reaction, Unable to Obtain Smoking Status: Never smoker - Past Family History Mother Additional Family Medical History / Comment(s): States having some form of thyroid disease Medications and Allergies Home Medications Medication Instructions Recorded Confirmed Type Pantoprazole Sodium 20 mg PO DAILY 10/11/22 12/07/22 History Vit No.179/Iron/Folic 1 each PO DAILY 12/26/21 02/21/22 History [ Tablet] Allergies Allergy/AdvReac Type Severity Reaction Status Date / Time No Known Allergies Allergy Verified 02/21/22 16:20 Exam Intake and Output 02/21/22 02/21/22 02/21/22 06:59 14:59 22:59 Other: Weight 89.811 kg This is a visibly gravid, uncomfortable-appearing -[place] woman. On my initial evaluation the patient 6-7 cm dilated 90% effaced and the vertex in the -2 station. Clear fluid is noted. She is dimas every 2-3 minutes spontaneously. heart tones are category 1. Assessment and Plan (1) 34 weeks gestation of Current Visit: Yes Status: Acute Code(s): Z3A.34 - 34 WEEKS GESTATION OF SNOMED Code(s): 93454104 (2) labor Current Visit: Yes Status: Acute Code(s): O60.00 - LABOR WITHOUT DELIVERY, UNSPECIFIED TRIMESTER SNOMED Code(s): 0985864 (3) Spontaneous rupture of membranes Current Visit: Yes Status: Acute Code(s): PHN2040 - SNOMED Code(s): 641153179 Plan: 26-year-old 5 para 1-23 woman with rupture of membranes and labor at 34-3/7 weeks gestation. Group B strep status unknown. She has recently the received steroids. She is not stable for transport and therefore will be admitted in active labor. Pediatric team has been notified. Anticipate normal spontaneous vaginal delivery.
[2022-02-21] MEDS ORDERED: SIMETHICONE 80 MG CHEWABLE PO PRN (17:42)
[2022-02-21] MEDS ORDERED: diphenhydrAMINE 25 MG CAP PO PRN (17:42)
[2022-02-21] MEDS ORDERED: LANOLIN CREAM 5 GM TUBE TOPICAL PRN (17:42)
[2022-02-21] MEDS ORDERED: diphenhydrAMINE 50 MG/ML 1 ML VIAL IVP PRN ×2 (17:42)
[2022-02-21] MEDS ORDERED: diphenhydrAMINE 50 MG CAP PO PRN (17:42)
[2022-02-21] MEDS ORDERED: BENZOCAINE/MENTHOL SPRAY 1 GM/SPRAY AEROSOL TOPICAL PRN (17:42)
[2022-02-21] MEDS ORDERED: ZOLPIDEM 5 MG TAB PO PRN (17:42)
[2022-02-21] MEDS ORDERED: HYDROCORTISONE 2.5% RECTAL CREAM 30 GM TUBE RECTAL PRN (17:42)
--- NOTE | 2022-02-21 17:42 | P.PROBDLV ---
Vaginal Delivery Note - . Vaginal Delivery Note: Findings: Male infant in the vertex presentation with Apgars of 8 at 1 minute and 9 at 5 minutes weighing 5 lbs. 0 oz., 2270 g. Intact, three-vessel cord placenta. Intact perineum. EBL less than 100 mL's. Delivery summary: This is a 26-year-old 5 para 1-23 woman who presents at 34-3/7 weeks gestation in spontaneous active labor after rupture of membranes. Upon admission she's 5 cm dilated and actively dimas. Spontaneous rupture of membranes is confirmed. She is admitted to the room however we're unable to get IV access. She had rapid progression to complete cervical dilation with strong urge to push. heart tones are reassuring. With maternal effort 1 head delivers rapidly followed by the rest of the infant onto the field. Nose and mouth were bulb suctioned. The infant is placed on the maternal abdomen and the cord is clamped and cut. Infant was taken to the warmer for further evaluation. Apgars were 8 at 1 minute and 9 at 5 minutes and weight is 5 lbs. 0 oz., 2270 g. An intact, three-vessel cord placenta was delivered less than 5 minutes after delivery of the infant. The perineum cervix and vagina are inspected and no further lacerations were noted. The patient received IM Pitocin due to no IV access. The uterus is firm 3 cm below the umbilicus. EBL less than 100 mL's. Both mother and are doing well post delivery. The infant was taken to the special care nursery for further evaluation due to prematurity.
[2022-02-21] MEDS: ACETAMINOPHEN TAB 325 MG TAB PO PRN (18:29)
[2022-02-21 19:43] LABS: Basophils % (A) 0 %; Eosinophils # (A) 0.1 k/uL (0-0.7); Eosinophils % (A) 2 %; HCT 37.9 % (34.0-46.0); HGB 12.5 gm/dL (11.4-16.0); Lymphocytes # (A) 0.7 k/uL (1.0-4.8); Lymphocytes % (A) 9 %; MCH 28.6 pg (25.0-35.0); MCHC 33.1 g/dL (31.0-37.0); MCV 86.4 fL (80.0-100.0); Mean Platelet Volume 9.8; Monocytes # (A) 0.2 k/uL (0-1.0); Monocytes % (A) 3 %; Neutrophils # (A) 6.6 k/uL (1.3-7.7); Neutrophils % (A) 85 %; Platelet Count 229 k/uL (150-450); RBC 4.38 m/uL (3.80-5.40); RDW 13.4 % (11.5-15.5); WBC 7.7 k/uL (3.8-10.6)
[2022-02-21] MEDS ORDERED: PENICILLIN G POTASSIUM 2,500,000 UNIT in DEXTROSE 5% IN WATER 100 ML IVPB SCH ×2 (20:30)
[2022-02-21] MEDS: SENNOSIDES-DOCUSATE SODIUM 1 EACH TAB PO SCH (21:48)
[2022-02-22 00:06] VITALS: RESP 16
[2022-02-22] MEDS: IBUPROFEN 600 MG TAB PO PRN ×2 (04:15→10:12)
[2022-02-22 06:56] LABS: Basophils % (A) 0 %; Eosinophils # (A) 0.1 k/uL (0-0.7); Eosinophils % (A) 1 %; HCT 36.3 % (34.0-46.0); HGB 12.2 gm/dL (11.4-16.0); Lymphocytes # (A) 1.6 k/uL (1.0-4.8); Lymphocytes % (A) 23 %; MCH 29.1 pg (25.0-35.0); MCHC 33.7 g/dL (31.0-37.0); MCV 86.4 fL (80.0-100.0); Mean Platelet Volume 9.2; Monocytes # (A) 0.4 k/uL (0-1.0); Monocytes % (A) 6 %; Neutrophils # (A) 4.5 k/uL (1.3-7.7); Neutrophils % (A) 67 %; Platelet Count 229 k/uL (150-450); RDW 13.1 % (11.5-15.5); WBC 6.7 k/uL (3.8-10.6)
[2022-02-22 07:34] VITALS: BP 108/71; PULSE 65; TEMP 97.6
[2022-02-22] MEDS: SENNOSIDES-DOCUSATE SODIUM 1 EACH TAB PO SCH (07:39)
[2022-02-22] MEDS ORDERED: medroxyPROGESTERone 150 MG/ML 1ML VIAL IM ONE (07:41)
--- NOTE | 2022-02-22 07:42 | P.DS ---
Providers Date of admission: 02/21/22 16:37 Expected date of discharge: 02/22/22 Attending physician: Makenzie Castillo Primary care physician: Stated None - Discharge Diagnosis(es) (1) 34 weeks gestation of Current Visit: Yes Status: Acute (2) labor Current Visit: Yes Status: Acute (3) Spontaneous rupture of membranes Current Visit: Yes Status: Acute Hospital Course: This is a 26-year-old 6 now para 1234 woman who is admitted at 34-3/7 weeks gestation with spontaneous rupture of membranes and active labor. She recently been inpatient for labor at [facility] and discharged home 24 hours prior to presentation. Following admission rupture of membranes was confirmed and she was found to be in active labor 5 cm dilated. She previously received steroids. She was admitted and had very rapid progression to complete cervical dilation. With maternal effort 1 she delivered a liveborn male infant over an intact perineum. Apgars were 8 at 1 minute and 9 at 5 minutes and weight was 5 lbs. 0 oz. The was taken to the special care nursery per protocol and eventually was transferred to a higher level nursery care in good condition due to gestational age. On the patient's course was unremarkable. By the morning of day #1 she was ambulating and voiding without difficulty and tolerating a general diet. Her lochia was very minimal and she had no pain. Her vital signs were stable and her labs are within normal limits. She was therefore discharged home so that she could join her baby. She requests Depo-Provera prior to discharge home. She was given routine instructions otherwise for care and follow-up. Patient Condition at Discharge: Good Plan - Discharge Summary New Discharge Prescriptions: No Action Vit No.179/Iron/Folic [ Tablet] 1 each PO DAILY Pantoprazole Sodium 20 mg PO DAILY Discharge Medication List Pantoprazole Sodium 20 mg PO DAILY 12/26/21 [History] Vit No.179/Iron/Folic [ Tablet] 1 each PO DAILY 12/26/21 [History] Follow up Appointment(s)/Referral(s): Makenzie Castillo MD [STAFF PHYSICIAN] - 6 Weeks Activity/Diet/Wound Care/Special Instructions: Follow-up in the office in 6 weeks . Call with any concerning signs or symptoms including heavy vaginal bleeding, severe abdominal pain, fever greater than 101, swelling or redness of the lower extremities, foul vaginal discharge, or signs of depression. Nothing in the vagina for 6 weeks after delivery, specifically no intercourse. Discharge Disposition: HOME SELF-CARE
[2022-02-22] MEDS: ACETAMINOPHEN TAB 325 MG TAB PO PRN (08:44)
== END 2022-02-22 11:15 | disposition home or self-care (01) | DRG 805 ==
LOC: FBPOP 16:04 → 4FBP 16:37
PROVIDERS: ADMIT Obstetrics & Gynecology; ATTEND Obstetrics & Gynecology
PROC: 10E0XZZ Delivery of Products of Conception, External Approach (ICD-10-PCS; principal; 2022-02-21)
PROC: 4A0HXCZ Measurement of Products of Conception, Cardiac Rate, External Approach (ICD-10-PCS; 2022-02-21)
DX: O42.913 Preterm premature rupture of membranes, unspecified as to length of time between rupture and onset of labor, third trimester (principal); O60.14X0 Preterm labor third trimester with preterm delivery third trimester, not applicable or unspecified; O62.3 Precipitate labor; Z37.0 Single live birth; O98.32 Other infections with a predominantly sexual mode of transmission complicating childbirth; A56.02 Chlamydial vulvovaginitis; A59.01 Trichomonal vulvovaginitis; Z3A.34 34 weeks gestation of pregnancy
CPT/HCPCS: 59025; 84112; 85025; 86850; 86900; 86901; 99213